=== PATIENT | female | born 1950 | race Caucasian/White ===

== ENCOUNTER 2018-02-23 07:48 | Inpatient (IN) | payer MEDICARE ==
[2018-02-20 17:40] VITALS: BMI 28.8
[2018-02-23] MEDS ORDERED: CEFAZOLIN/Water 2 GM/20 ML SYRINGE ONE (09:17)
[2018-02-23 09:18] LABS: Hemoglobin 13.5 g/dL (12.0-16.0); Mean Corpuscular HGB CONC 32.9 g/dL (32.0-36.0); Mean Corpuscular Hemoglobin 32.4 pg (27.0-31.0); Mean Corpuscular Volume 98.5 fl (81.0-99.0); Mean Platelet Volume 5.9 fL (7.4-10.4); Platelet Count 369 thou/uL (130-400); RBC Distribution Width 12.4 % (11.5-14.5); Red Blood Cell (RBC) Count 4.17 mill/uL (4.20-5.40); White Blood Cell (WBC) Count 7.1 thou/uL (4.8-10.8)
[2018-02-23 09:36] LABS: Anion Gap 11 mmol/L (10-20); BUN (Urea Nitrogen) 14 mg/dL (9.8-20.1); Calc. Creatinine Clearance 92 mL/min (70-130); Calcium 9.6 mg/dL (7.8-10.44); Carbon Dioxide 29 mmol/L (23-31); Chloride 101 mmol/L (98-107); Estimated GFR-MDRD 77; Glucose 109 mg/dL (80-115); Potassium 3.9 mmol/L (3.5-5.1); Sodium 137 mmol/L (136-145)
[2018-02-23] MEDS ORDERED: Fentanyl 100 MCG/2 ML VIAL ONE ×2 (10:38→12:22)
[2018-02-23] MEDS ORDERED: Lidocaine 2% Jelly 5 ML TUBE ONE (10:38)
[2018-02-23] MEDS ORDERED: Sodium Chloride 0.9% 10 ML ONE (10:39)
[2018-02-23] MEDS ORDERED: Promethazine HCl 25 MG/ML VIAL IM PRN ×3 (11:48→13:04)
[2018-02-23] MEDS ORDERED: Promethazine HCl 25 MG/ML VIAL SLOW IVP PRN ×2 (11:48)
[2018-02-23] MEDS ORDERED: Ondansetron HCl/PF 4 MG/2 ML Vial IVP PRN ×2 (11:48)
--- NOTE | 2018-02-23 12:07 | OP ---
DATE OF PROCEDURE: 02/23/2018 SURGEON: Junior Novoa M.D. SITE LEAD: Carlos Hay PA-C. PROCEDURES PERFORMED: Right L5-S1 posterolateral arthrodesis, demineralized bone matrix and local mo rselized autograft, pedicle screw instrumentation, right L5-S1 and right L5-S1 laminectomy. PROCEDURE IN DETAIL: The patient was brought to the operating room and intubated. She was rolled in the prone position on gel-filled chest rolls. The L5-S1 region was exposed bilaterally and the righ t L5 scar tissue was identified. Some additional decompression was performed here. Some CSF was rasheed nating from the dura that was controlled with a Gelfoam pledget and DuraSeal fibrin sealant. Pedicle screws were then placed at right L5 and right S1, connected by a sugar and distraction placed across t he screws to further decompress the neural foramen. This was secured by nuts, which were final tight ened. The wound was then extensively irrigated, immaculate hemostasis was secured. Combination of d emineralized bone matrix and local morselized autograft was laid over the left laminar and posterolat eral surfaces for the purpose of arthrodesis. Vancomycin powder was applied and the wound was then c losed in anatomic layers.
[2018-02-23] MEDS ORDERED: traZODone HCl 50 MG TAB PO PRN (12:58)
[2018-02-23] MEDS ORDERED: PROVENTIL INHALER 6.7 G (200 INHALATIONS) INH PRN (13:00)
[2018-02-23] MEDS ORDERED: Mometasone/Formoterol 120 PUFF INHALER INH PRN (13:02)
[2018-02-23] MEDS ORDERED: Ondansetron HCl/PF 4 MG/2 ML Vial SLOW IVP PRN (13:04)
[2018-02-23] MEDS ORDERED: Promethazine HCl 12.5 MG SUPP PR PRN (13:04)
[2018-02-23] MEDS ORDERED: Acetaminophen/Codeine 30-300mg Tablet PO PRN (13:04)
[2018-02-23] MEDS ORDERED: Cyclobenzaprine 10 MG TAB PO PRN (13:04)
[2018-02-23] MEDS ORDERED: diphenhydrAMINE 25 MG CAP PO PRN (13:04)
[2018-02-23] MEDS ORDERED: Milk Of Magnesia 30 ML UDCUP PO PRN (13:04)
[2018-02-23] MEDS ORDERED: diphenhydrAMINE 50 MG/ML VIAL IVP PRN (13:04)
[2018-02-23] MEDS ORDERED: traMADol HCl 50 MG TAB PO PRN ×2 (13:04)
[2018-02-23] MEDS ORDERED: Promethazine 25 MG TAB PO PRN ×2 (13:04)
[2018-02-23] MEDS ORDERED: Morphine 4 MG/ML Carpuject SLOW IVP PRN (13:04)
[2018-02-23] MEDS ORDERED: Morphine 4 MG/ML VIAL SLOW IVP PRN ×2 (13:15)
[2018-02-23] MEDS ORDERED: CEFAZOLIN/Water 2 GM/20 ML SYRINGE SLOW IVP SCH (14:00)
[2018-02-23] MEDS ORDERED: Loperamide HCl 2 MG CAP PO PRN (14:22)
[2018-02-23] MEDS ORDERED: Loratadine 10 MG TAB PO PRN (14:22)
[2018-02-23] MEDS ORDERED: Bisacodyl 10 MG SUPP PR PRN (14:22)
[2018-02-23] MEDS ORDERED: hydrALAZINE 20 MG/ML VIAL SLOW IVP PRN (14:22)
[2018-02-23] MEDS ORDERED: Artificial Tears 18 DROP/0.9 ML EA EYE PRN (14:22)
[2018-02-23] MEDS ORDERED: Ondansetron ODT 4 MG TAB PO PRN (14:22)
[2018-02-23] MEDS ORDERED: Eucerin (Mineral Oil/Petrolatum,White) 30 gm Jar TOP PRN (14:22)
[2018-02-23] MEDS ORDERED: Diabetic Tussin 200 MG/10 ML UDCUP PO PRN (14:22)
[2018-02-23] MEDS ORDERED: Mag-Al 1200 mg/1200 mg/30 ML UDCUP PO PRN (14:22)
[2018-02-23] MEDS ORDERED: Senokot 8.6 MG TAB PO PRN (14:22)
[2018-02-23] MEDS ORDERED: Acetaminophen 325 MG TAB PO PRN (14:22)
[2018-02-23] MEDS ORDERED: Chloraseptic Spray 180 ml Bottle PO PRN (14:23)
--- NOTE | 2018-02-23 14:41 | CON ---
DATE OF CONSULTATION: 02/23/2018 PRIMARY CARE PHYSICIAN: Is in [place], so this is city call consult. PRIMARY ATTENDING: Junior Noova M.D. REASON FOR ADMISSION: L5-S1 decompression and fusion. REASON FOR CONSULT: Medical comanagement. HISTORY OF PRESENT ILLNESS: A 67-year-old female who has underlying history of hypertension, dyslipi demia, gastroesophageal reflux disease as well as spinal stenosis and chronic low back pain. The pat xenia is electively admitted by Dr. Bright Pacheco for L5-S1 decompression and fusion. The patient has a history of right L5 foraminotomy in 2016 and subsequently patient was doing very well. Estuardo altamirano was recently diagnosed with L5 foraminal stenosis. The patient had epidural steroid injection by Lilian Randolph. Patient was having chronic low back pain and pain was not improved with conservative treatment and that is why patient was admitted by Dr. Novoa today for elective surgery which was done earlier today without any complication. Postoperatively, at surgical floor we are consulted for medical management. Patient denies any UTI symptoms. She denies any constipation, diarrhea. She denies any abdominal pa in. She denies any fever, chills and cough. Patient reports that she recovered from acute bronchiti s recently. She denies any flu-like illness. The patient is up to date in vaccination. REVIEW OF SYSTEMS: The following complete review of systems was negative, unless otherwise mentioned in the HPI or below: Constitutional: Weight loss or gain, ability to conduct usual activities. Skin: Rash, itching. Eyes: Double vision, pain. ENT/Mouth: Nose bleeding, neck stiffness, pain, tenderness. Cardiovascular: Palpitations, dyspnea on exertion, orthopnea. Respiratory: Shortness of breath, wheezing, cough, hemoptysis, fever or night sweats. Gastrointestinal: Poor appetite, abdominal pain, heartburn, nausea, vomiting, constipation, or diarr hea. Genitourinary: Urgency, frequency, dysuria, nocturia. Musculoskeletal: Pain, swelling. Neurologic/Psychiatric: Anxiety, depression. Allergy/Immunologic: Skin rash, bleeding tendency. Please see my HPI for pertinent positive and negative. All other review of systems reviewed and nega tive except as mentioned in the HPI. ALLERGIES: CODEINE and SULFA. CURRENT HOME MEDICATIONS: Tylenol #3 one tablet q.6 hourly p.r.n., Ventolin HFA 1 puff q.6 hourly p. r.n., Lipitor 40 mg p.o. at bedtime, azelastine nasal spray b.i.d., vitamin D3 5000 unit p.o. daily, cyclobenzaprine 5 mg p.o. t.i.d. p.r.n., Breo Ellipta inhalation as directed, Atrovent nasal spray b. i.d., probiotic 1 capsule p.o. daily, losartan 25 mg p.o. daily, oxybutynin ER 10 mg p.o. at bedtime, Protonix 40 mg p.o. daily, trazodone 50 mg p.o. at bedtime p.r.n., vitamin B12 2500 mcg sublingual d aily. PAST MEDICAL HISTORY: Asthma, hypertension, dyslipidemia, migraine headache, gastroesophageal reflux disease, cervical and lumbar stenosis, allergic rhinitis. PAST SURGICAL HISTORY: Bladder sling surgery, cervical spine surgery, right L5 foraminotomy in 2015, another back surgery in 2008, status post decompressive laminectomy on L5-S1 today, knee arthroscopy on the right side, cholecystectomy, right ankle surgery in 1994, right ovarian cyst removed in 1969, hysterectomy, tonsillectomy, adenoidectomy, right shoulder surgery. PAST PSYCHIATRIC HISTORY: Reviewed and negative. FAMILY HISTORY: One brother from testicular cancer and another brother had lung cancer. Both p arents diagnosed with coronary artery disease. SOCIAL HISTORY: Patient is an ex-smoker. She quit smoking in 2001. She drinks alcohol socially. S he denies any other illicit drug abuse. PHYSICAL EXAMINATION: VITAL SIGNS: Currently, temperature 98.6, pulse 79, respiratory rate 18, blood pressure 130/78, weig ht 179 pounds, and saturation 99% on room air. GENERAL: The patient is currently alert, awake, no acute distress. HEAD: Normocephalic, atraumatic. EYES: Pupils round, reactive to light. Extraocular muscle intact. ENT: Oropharynx within normal limits. Moist mucous membranes, no oral lesion, no pharyngeal erythem a, no exudate. NECK: Supple, no JVD, no thyromegaly, no carotid bruit, no jugular venous distention. LUNGS: Clear to auscultation without any rhonchi or rales. CARDIAC: S1 and S2 regular. No murmur, no gallop, no rub. ABDOMEN: Soft, bowel sounds present, nontender, nondistended. No organomegaly, no mass, no suprapub ic tenderness. BACK: Examination unremarkable. Surgical site is covered with a dressing. No drain. EXTREMITIES: No edema. NEUROLOGIC: Nonfocal examination. The patient moves all 4 limbs. Plantar bilateral flexor. PSYCHIATRIC: Normal affect. HEMATOLOGICAL SYSTEM: No lymphadenopathy. SIGNIFICANT LABORATORY DATA AND IMAGING DATA: 1. CBC: WBC 7.1, hemoglobin 13.5, platelet 369. 2. BMP: Sodium 137, potassium 3.9, chloride 101, carbon dioxide 29, anion gap 11, BUN 14, creatinin e 0.75, glucose 109, calcium 9.6. 3. Lumbar spine MRI and cervical spine MRI report noted consistent with multilevel spondylosis of richie mbar spine with stenosis. Similarly, cervical spine MRI also shows degenerative spine disease and tesfaye rgical changes. ASSESSMENT AND PLAN/IMPRESSION: 1. Status post right L5-S1 posterolateral arthrodesis and right L5-S1 laminectomy. Management as pe r primary team. Patient will need PT/OT and most likely patient will be discharged tomorrow based on clinical course. Pain will be controlled with pain medication. 2. Asthma, currently stable. We will continue patient's home medications, Ventolin HFA 2 puffs q.6 hourly p.r.n. basis. We will also continue Breo Ellipta equivalent Dulera while in hospital as neede d. 3. Gastroesophageal reflux disease. We will continue Protonix 40 mg p.o. daily. 4. Overactive bladder. We will continue Ditropan XL 10 mg p.o. at bedtime. 5. Hypertension. We will continue losartan 25 mg p.o. daily. We will hold on antihypertensive medi cation if blood pressure is less than 120 systolic. 6. Allergic rhinitis. We will continue Atrovent nasal spray and azelastine nasal spray. 7. Deep venous thrombosis prophylaxis. Sequential compression device boots. No Lovenox because of back surgery. 8. Dyslipidemia. Continue Lipitor 40 mg p.o. at bedtime. 9. Gastrointestinal prophylaxis. Patient is already on Protonix therapy. 10. Code status: The patient is FULL CODE. Patient's brother is surrogate decision maker. Disposition plan based on clinical course. Thank you for consult. We will follow up with you while in hospital. Plan of care discussed with louisa lerma's family member at bedside.
[2018-02-23] MEDS: Acetaminophen/Codeine 30-300mg Tablet PO PRN ×2 (15:30→21:05)
[2018-02-23] MEDS: Sodium Chloride 0.9% 1,000 ML IV SCH (15:32)
[2018-02-23] MEDS ORDERED: PHENYLEPHRINE-NS 100 MCG/ML 10 ML SYRINGE ONE (15:49)
[2018-02-23] MEDS ORDERED: Glycopyrrolate 0.2 MG/ML 5 ML SYRINGE ONE (15:49)
[2018-02-23] MEDS ORDERED: Lidocaine 1% PF 5 ML VIAL ONE (15:49)
[2018-02-23] MEDS ORDERED: Ondansetron HCl/PF 4 MG/2 ML Vial ONE (15:49)
[2018-02-23] MEDS ORDERED: PROPOFOL 200 MG/20 ML VIAL ONE (15:49)
[2018-02-23] MEDS ORDERED: Dexamethasone 20 MG/5 ML VIAL ONE ×2 (15:49)
[2018-02-23] MEDS: CEFAZOLIN/Water 2 GM/20 ML SYRINGE SLOW IVP SCH (17:22)
[2018-02-23] MEDS: Mometasone/Formoterol 120 PUFF INHALER INH SCH (18:59)
[2018-02-23] MEDS ORDERED: Atorvastatin Calcium 40 MG TAB PO SCH (21:00)
[2018-02-23] MEDS ORDERED: Oxybutynin ER 5 MG TAB PO SCH (21:00)
[2018-02-23] MEDS: Azelastine 137 MCG/Spray 30 ML NS SCH (21:03)
[2018-02-23] MEDS: Ipratropium Bromide 0.06% Nasal Inhaler 15ml EA NARE SCH (23:09)
[2018-02-24] MEDS: CEFAZOLIN/Water 2 GM/20 ML SYRINGE SLOW IVP SCH (00:25)
[2018-02-24] MEDS: Sodium Chloride 0.9% 1,000 ML IV SCH (04:32)
[2018-02-24] MEDS: Mometasone/Formoterol 120 PUFF INHALER INH SCH (07:42)
[2018-02-24 07:52] VITALS: BP 137/74; TEMP 97.5
[2018-02-24] MEDS ORDERED: Lactinex Tablet PO SCH (09:00)
[2018-02-24] MEDS ORDERED: Losartan 25 MG TAB PO SCH ×2 (09:00)
[2018-02-24] MEDS ORDERED: Cyanocobalamin (Vitamin B-12) 1,000 MCG TAB PO SCH (09:00)
[2018-02-24] MEDS: Ipratropium Bromide 0.06% Nasal Inhaler 15ml EA NARE SCH (10:21)
[2018-02-24] MEDS: Azelastine 137 MCG/Spray 30 ML NS SCH (10:21)
--- NOTE | 2018-03-01 08:37 | EKG ---
Test Reason : PREOP Blood Pressure : / mmHG Vent. Rate : 076 BPM Atrial Rate : 076 BPM P-R Int : 136 ms QRS Dur : 086 ms QT Int : 426 ms P-R-T Axes : 044 044 051 degrees QTc Int : 479 ms Normal sinus rhythm Normal ECG When compared with ECG of 12-AUG-2016 10:56, No significant change was found Confirmed by LUPE RIVERA, RE ([id number]) on 03/01/2018 8:36:50 AM Referred By: AUDRA Confirmed By:RE ANDRADE MD
== END 2018-02-24 11:00 | disposition home or self-care (01) | DRG 460 ==
LOC: SURG A 07:48 → SURG B 13:44 → EDSTATUS 14:44
PROVIDERS: ADMIT Neurological Surgery; ATTEND Neurological Surgery
PROC: 0SG3071 Fusion of Lumbosacral Joint with Autologous Tissue Substitute, Posterior Approach, Posterior Column, Open Approach (ICD-10-PCS; principal; 2018-02-23)
PROC: 00NY0ZZ Release Lumbar Spinal Cord, Open Approach (ICD-10-PCS; 2018-02-23)
DX: M43.16 Spondylolisthesis, lumbar region (principal); M48.02 Spinal stenosis, cervical region; M43.27 Fusion of spine, lumbosacral region; M48.061 Spinal stenosis, lumbar region without neurogenic claudication; I10 Essential (primary) hypertension; K21.9 Gastro-esophageal reflux disease without esophagitis; E78.5 Hyperlipidemia, unspecified; G89.29 Other chronic pain; Z88.5 Allergy status to narcotic agent; Z88.2 Allergy status to sulfonamides; J45.909 Unspecified asthma, uncomplicated; Z79.51 Long term (current) use of inhaled steroids; Z79.82 Long term (current) use of aspirin; Z90.49 Acquired absence of other specified parts of digestive tract; Z87.891 Personal history of nicotine dependence; N32.81 Overactive bladder; M54.16 Radiculopathy, lumbar region
CPT/HCPCS: 36415; 76001; 80048; 85027; 93005; 93010; A4216; C1713; C1768; G8978-GP-CI; G8979-GP-CI; G8980-GP-CI; J1100; J2001; J2270; J2405; J2704; J3010; J3370; J3490

== ENCOUNTER 2018-03-11 15:32 | Outpatient (CLI) | payer MEDICARE ==
--- NOTE | 2018-03-11 17:08 | RAD ---
TWO VIEWS LUMBAR SPINE 03/11/18 HISTORY: Spinal stenosis. Followup surgery. COMPARISON: 01/14/17 FINDINGS: Rightward curvature of the lumbar spine at the L2 and L3 level. There are five lumbar type vertebral bodies. Right sided transpedicular screw at L5 and S1. No perihardware lucency. Stable degenerative d isc disease at L2-L3 with osteophyte formation. There appears to be pseudoarthrosis of the left L5 al a with the sacrum. IMPRESSION: Uncomplicated lumbar fusion. POS: JEANIE
== END 2018-03-11 15:33 | disposition home or self-care (01) ==
LOC: TBSIIMAG 15:32
PROVIDERS: ATTEND Neurological Surgery
DX: M48.062 Spinal stenosis, lumbar region with neurogenic claudication (principal); Z98.1 Arthrodesis status
CPT/HCPCS: 72100

== ENCOUNTER 2018-04-08 15:32 | Outpatient (CLI) | payer MEDICARE ==
--- NOTE | 2018-04-08 16:07 | RAD ---
LUMBAR SPINE TWO VIEWS: History: Back pain, lumbar radiculopathy, follow up surgery. Comparison: 03-11-18 FINDINGS: Scoliotic curvature with convexity to the right is again noted. Lumbar vertebrae maintain height and alignment in the lateral view. Pedicle screws are seen on the right at L5-S1 and are unchanged in pos ition. IMPRESSION: Degenerative and post-operative changes lumbar spine appear stable from 03-11-18. POS: KATHERINE
== END 2018-04-08 15:33 | disposition home or self-care (01) ==
LOC: TBSIIMAG 15:32
PROVIDERS: ATTEND Neurological Surgery
DX: M47.26 Other spondylosis with radiculopathy, lumbar region (principal); Z98.890 Other specified postprocedural states
CPT/HCPCS: 72100

== ENCOUNTER 2018-09-03 14:10 | Outpatient (CLI) | payer MEDICARE ==
--- NOTE | 2018-09-03 16:01 | RAD ---
TWO VIEWS LUMBAR SPINE: Date: 09-03-18 Comparison: 04-08-18 History: Right leg numbness while exercising, radiculopathy, prior back surgery. FINDINGS: Surgical clips in the right upper quadrant suggest prior cholecystectomy. There is dextroscoliosis of the upper lumbar spine centered at the L2 vertebral body with a rotationa l component, stable. Stable fusion hardware comprised of a unilateral right sided L5 and S1 pedicle screw with a verticall y oriented interlocking sugar, noted and is grossly unchanged. There is no evidence of anterolisthesis or retrolisthesis There is disc space narrowing with degenerative endplate change and anterior osteophyte formation at L2-3 and L5-S1. No acute fracture is evident. No significant interval change. IMPRESSION: Stable post-operative and degenerative changes of the lumbar spine as detailed above. POS: JEANIE
== END 2018-09-03 14:11 | disposition home or self-care (01) ==
LOC: TBSIIMAG 14:10
PROVIDERS: ATTEND Neurological Surgery
DX: M47.26 Other spondylosis with radiculopathy, lumbar region (principal); Z98.890 Other specified postprocedural states
CPT/HCPCS: 72100

== ENCOUNTER 2018-10-28 13:31 | Outpatient (CLI) | payer MEDICARE ==
--- NOTE | 2018-10-28 15:45 | RAD ---
LUMBAR SPINE THREE VIEWS: 10/28/18 COMPARISON: 09/03/18. HISTORY: Evaluate lumbar spine following surgery, radiculopathy. FINDINGS: Stable prominent dextroscoliosis of the lumbar spine noted. There is a right sided L5 and S1 pedicle screw with a vertically oriented interlocking sugar, similar when compared to the prior examination. Th ere is no significant anterolisthesis or retrolisthesis seen. There is disc space narrowing with post erior and anterior osteophyte formation at L2-3. There is disc space narrowing and anterior osteophyt e formation at L5-S1. Clips in right upper quadrant suggests prior cholecystectomy. No acute fracture or evidence of dislocation. No evidence for hardware failure. IMPRESSION: Stable postoperative and degenerative change of the lumbar spine. POS: JEANIE
== END 2018-10-28 13:32 | disposition home or self-care (01) ==
LOC: TBSIIMAG 13:31
PROVIDERS: ATTEND Neurological Surgery
DX: M47.26 Other spondylosis with radiculopathy, lumbar region (principal); Z98.890 Other specified postprocedural states
CPT/HCPCS: 72100

== ENCOUNTER 2019-03-24 17:23 | Observation (INO) | payer MEDICARE ==
[2019-03-24 18:02] LABS: #Basophils 0.1 thou/uL (0.0-0.2); #Eosinphils 0.1 thou/uL (0.0-0.7); #Lymphocytes 5.3 thou/uL (1.20-3.40); #Monocytes 1.6 thou/uL (0.11-0.59); #Neutrophils 8.4 thou/uL (1.40-6.50); %Basophils 0.9 % (0.0-1.0); %Eosinophils 0.7 % (0.0-10.0); %Monocytes 10.5 % (0.0-10.0); Hemoglobin 14.5 g/dL (12.0-16.0); Mean Corpuscular HGB CONC 32.6 g/dL (32.0-36.0); Mean Corpuscular Hemoglobin 31.2 pg (27.0-31.0); Mean Corpuscular Volume 95.7 fL (78.0-98.0); Mean Platelet Volume 6.2 fL (7.4-10.4); Platelet Count 406 thou/uL (130-400); RBC Distribution Width 12.8 % (11.5-14.5); Red Blood Cell (RBC) Count 4.64 mill/uL (4.20-5.40); White Blood Cell (WBC) Count 15.5 thou/uL (4.8-10.8)
--- NOTE | 2019-03-24 18:11 | RAD ---
Frontal radiograph chest: 03/24/2019 COMPARISON: 05/18/2018 HISTORY: Epigastric pain radiating to the back FINDINGS: Mild increased linear density within the inferior lung bases suggests volume loss. Heart an d mediastinal contours are stable. No pneumothorax or pleural fluid. No focal consolidation or alveolar edema. IMPRESSION: No acute findings.
[2019-03-24 18:36] LABS: ALT (SGPT) 25 U/L (8-55); AST (SGOT) 12 U/L (5-34); Albumin 4.5 g/dL (3.4-4.8); Alkaline Phosphatase 86 U/L (40-150); Anion Gap 12 mmol/L (10-20); Bilirubin, Total 0.5 mg/dL (0.2-1.2); CK (CPK) 55 U/L (29-168); Calc. Creatinine Clearance 0 mL/min (70-130); Calcium 10.4 mg/dL (7.8-10.44); Carbon Dioxide 31 mmol/L (23-31); Chloride 97 mmol/L (98-107); Estimated GFR-MDRD 72; Globulin 2.7 g/dL (2.4-3.5); Glucose 103 mg/dL (80-115); Lipase 89 U/L (8-78); Potassium 3.8 mmol/L (3.5-5.1); Protein, Total 7.2 g/dL (6.0-8.3); Sodium 136 mmol/L (136-145)
[2019-03-24 18:54] LABS: BUN (Urea Nitrogen) 14 mg/dL (9.8-20.1)
[2019-03-24] MEDS ORDERED: Aspirin Chewable 81 MG TAB ONE (21:01)
[2019-03-24 21:31] LABS: Troponin I 0.014 ng/mL (< 0.028)
[2019-03-24] MEDS ORDERED: Acetaminophen/Codeine 30-300mg Tablet PO PRN (22:36)
[2019-03-24] MEDS ORDERED: PROVENTIL INHALER 6.7 G (200 INHALATIONS) INH PRN (22:36)
[2019-03-24] MEDS ORDERED: Cyclobenzaprine 10 MG TAB PO PRN (22:36)
[2019-03-25 00:08] VITALS: BMI 29.6
[2019-03-25 00:39] LABS: Troponin I 0.012 ng/mL (< 0.028)
--- NOTE | 2019-03-25 02:35 | HP ---
PRIMARY CARE PHYSICIAN: Dr. Alexander in [place]. CHIEF COMPLAINT: Shortness of breath and epigastric pain radiating to right jaw and right side of back. HISTORY OF PRESENT ILLNESS: Ms. Bautista is a 68-year-old female with a past medical history of hypertension, hyperlipidemia, chronic bronchitis/COPD, urinary incontinence, who had presented to [facility] earlier today after she had some worsening epigastric pain radiating to right upper quadrant around to right scapula and right side of jaw. She had reported symptoms started around Friday and had gradually worsened over the last 2 days. She states that she had seen her PCP, Dr. Alexander, late last week and was treated for chronic bronchitis/COPD exacerbation. She states that she was started on doxycycline and a prednisone course. She states that she had started this regimen on Friday and had taken out over the weekend prior to symptoms starting early Friday morning. She states that the pain is pretty consistent. She had denied any change with food or meals. She had denied any fever, chills, any headache, blurred vision, or dizziness, any vision changes. She had denied any palpitations or nausea or vomiting. She states that she had tried to take her home TUMS; however, she had denied any sort of relief. She states within the last year, she had some left-sided chest pain and she was seen by a acid wash operator, Dr. Guevara, and she reports an extensive cardiac workup within the last year. However, she had stated that the workup was negative. Her initial workup included a chest x-ray which revealed no acute findings. WBC sightly elevated at 15.5; however, this could likely be secondary to her recent and current prednisone use. Serial troponins were ordered and were found to be negative x2. The 3rd is pending. Lipase is slightly elevated at 89 with all other lab work essentially unremarkable. A D-dimer is pending at this time, along with abdominal ultrasound. Her EKG in the ED showed normal sinus rhythm with a rate in the 80s, she was given 325 mg of oral aspirin. However, denied any sort of relief after this. Plan is to admit the patient under observation, place her in the telemetry floor for further monitoring, her records from Dr. Guevara's office will be obtained and she will undergo further workup of her symptoms. REVIEW OF SYSTEMS: All other systems reviewed and found to be negative unless mentioned in the HPI. PAST MEDICAL HISTORY: Significant for hypertension, hyperlipidemia, chronic bronchitis/COPD, urinary incontinence. PAST SURGICAL HISTORY: Back surgery, bilateral cataract surgery, neck surgery, right shoulder surgery x2, right knee surgery x2, right ankle, hysterectomy, bladder surgery, tonsillectomy. PSYCHIATRIC HISTORY: None. SOCIAL HISTORY: The patient is a former smoker, she states that she quit in 2001. She states she drinks socially every week, however, denies any illicit drug use. KNOWN ALLERGIES: Cephalexin, codeine, meloxicam, and sulfa. CURRENT HOME MEDICATIONS: 1. Losartan 25 mg oral daily. 2. Atorvastatin 40 mg oral daily. 3. Oxybutynin 10 mg oral once daily. 4. Cyclobenzaprine 10 mg oral as needed for back spasms. 5. Acetaminophen/codeine 300/30 mg oral as needed for pain. 6. Albuterol 90 mcg one inhalation as needed for shortness of breath. 7. Potassium chloride 20 mEq oral once a week. 8. Alendronate 70 mg oral once a week. 9. Azelastine one spray intranasally three times a day. 10. Ipratropium bromide one spray intranasally two times a day. 11. Prednisone taper. 12. Doxycycline 100 mg p.o. b.i.d. PHYSICAL EXAMINATION: VITAL SIGNS: BP 162/88, pulse 76, respirations 18, temperature 98.5 degrees Fahrenheit, O2 saturations 97% on room air. GENERAL: The patient is awake, alert, and oriented x3. She appears to be nontoxic. She is currently sitting up in bed and in no acute distress noted. HEENT: Atraumatic, normocephalic. Pupils are round and reactive to light. Extraocular muscles intact. Moist mucous membranes noted. NECK: Soft and supple. No JVD noted. Trachea midline. CARDIOVASCULAR: Positive S1 and S2. Regular rate and rhythm. No murmur auscultated. RESPIRATORY: Clear to auscultation bilaterally. No wheezes, rales, or rhonchi appreciated. ABDOMEN: Soft. Mild to moderate tenderness in her right upper quadrant and her epigastric area, nondistended. Bowel sounds present. MUSCULOSKELETAL: Strength 5+ bilaterally upper and lower extremities. Moves all extremities equal. Pedal and radial pulses palpable and 2+ bilaterally. No edema noted. SKIN: Warm, dry, and intact. No rashes. No ulceration noted. NEUROLOGIC: Cranial nerves II through XII grossly intact. No focal deficits noted. Speech intact and normal. Gait, not assessed. PSYCHIATRIC: Good mood and affect. LABORATORY DATA: WBC 15.5, RBC 4.64, hemoglobin 14.5, platelets 406. ESR less than 1. Sodium 136, potassium 3.8, anion gap 12, BUN 14, creatinine 0.78, estimated GFR 72. AST 12, ALT 25. Creatine kinase 55. Troponin less than 0.010 and 0.014. Lipase 89. DIAGNOSTIC IMAGING: Portable chest x-ray showed no acute findings. ASSESSMENT AND PLAN: 1. Epigastric pain and pain in her right upper quadrant, radiating to right back and right side of jaw, lipase is slightly elevated at 89. Therefore, we will check an ultrasound of her right upper quadrant for further evaluation. The patient was recently started with doxycycline. Therefore, this could possibly be causing some mild pancreatitis and/or gastritis. She will be treated with PPI and her doxycycline will be switched to Levaquin during the hospital course. 2. Chest pain, even though, this appears to be more of an epigastric pain. We will trend her cardiac enzymes, so far negative x2. We will keep her on telemetry monitoring for further evaluation. Her records will be obtained from Dr. Guevara of [facility] in [place], as she states that she had an extensive cardiac workup within the last year. If this is true, she may not require any further cardiac workup at this time. However, we will await these records. 3. Chronic bronchitis/chronic obstructive pulmonary disease. The patient will be restarted on her home regimen. She was taking oral doxycycline and this will be discontinued at this time and will be switched to oral Levaquin. We will add DuoNebs as needed for any further shortness of breath. We will start her on oral guaifenesin for her cough. Due to patient's increased shortness of breath, we will rule out pulmonary embolism by obtaining D-dimer, currently pending at this time. 4. History of hypertension. Continue the patient's home regimen. 5. History of hyperlipidemia. Continue the patient's home regimen. 6. Deep venous thrombosis and gastrointestinal prophylaxis. CODE STATUS: Full code. DISPOSITION: Pending further workup and clinical findings. Job ID: [id number]
--- NOTE | 2019-03-25 07:10 | ULT ---
GALLBLADDER ULTRASOUND: Date: 03/25/19 HISTORY: Right upper quadrant pain. FINDINGS: No focal hepatic lesion. Gallbladder is not visualized. Correlate for prior surgical removal. Common duct is normal at 5 mm. No ascites. IMPRESSION: 1. Nonvisualization of gallbladder. Correlate for prior surgical removal. 2. No acute abnormality identified within the right upper quadrant, by sonographic evaluation. POS: NIMCOK
[2019-03-25 08:17] LABS: Hemoglobin 14.4 g/dL (12.0-16.0); Mean Corpuscular Hemoglobin 32.4 pg (27.0-31.0); Mean Corpuscular Volume 95.5 fL (78.0-98.0); Mean Platelet Volume 7.5 fL (7.4-10.4); Platelet Count 308 thou/uL (130-400); RBC Distribution Width 12.8 % (11.5-14.5); Red Blood Cell (RBC) Count 4.45 mill/uL (4.20-5.40); White Blood Cell (WBC) Count 9.1 thou/uL (4.8-10.8)
[2019-03-25 08:39] LABS: ALT (SGPT) 26 U/L (8-55); AST (SGOT) 11 U/L (5-34); Alkaline Phosphatase 79 U/L (40-150); Anion Gap 12 mmol/L (10-20); BUN (Urea Nitrogen) 14 mg/dL (9.8-20.1); Bilirubin, Total 0.6 mg/dL (0.2-1.2); Calc. Creatinine Clearance 94 mL/min (70-130); Calcium 9.4 mg/dL (7.8-10.44); Carbon Dioxide 33 mmol/L (23-31); Chloride 100 mmol/L (98-107); Estimated GFR-MDRD 78; Globulin 2.2 g/dL (2.4-3.5); Glucose 89 mg/dL (80-115); Lipase 65 U/L (8-78); Potassium 4.3 mmol/L (3.5-5.1); Protein, Total 6.2 g/dL (6.0-8.3); Sodium 141 mmol/L (136-145)
[2019-03-25 09:00] LABS: Band 3 % (5-11); Eosinophils 1 % (0-10); Lymphocytes 45 % (21-51); MDiff Complete? YES; Monocytes 9 % (0-10); Myelocyte 1 % (0-0); Neutrophil 41 % (42-75); RBC Morphology Normal
[2019-03-25] MEDS ORDERED: Doxycycline 100 MG CAP PO SCH (09:00)
[2019-03-25] MEDS ORDERED: Acetaminophen 650 MG Suppository PR PRN (09:12)
[2019-03-25] MEDS ORDERED: Ondansetron PF 4 MG/2 ML Vial IVP PRN (09:12)
[2019-03-25] MEDS ORDERED: Acetaminophen 325 MG TAB PO PRN (09:12)
[2019-03-25] MEDS: Losartan 25 MG TAB PO SCH (09:54)
[2019-03-25] MEDS: predniSONE 20 MG TAB PO SCH (09:55)
[2019-03-25] MEDS ORDERED: Cyclobenzaprine 10 MG TAB PO SCH (11:15)
--- NOTE | 2019-03-25 14:25 | PDOC.PN ---
- Subjective Encounter Start Date: 03/25/19 Encounter Start Time: 08:33 Subjective: Patient resting comfortably. Reports persistent pain in the right side -: of her jaw. No further epigastric or chest pain. States it had radiated up -: into rt side of her neck, however no further neck pain. Tolerated her breakfast well. No pain with chewing, no trouble swallowing. No painful swallowing. Denies any n/v or abdo pain. Recently treated for bronchitis with doxycycline, switched to Levaquin on admission. Patient states she has been doing well from that perspective and noticed improvement in her cough, though still lingering. Cough +green sputum, now its yellow. She does not take Mucinex due to dry oral mucosa when she does despite hydrating. Also states Tessalon perles do not help with her cough. - Objective Resuscitation Status - Order Detail: 03/25/19 09:12 Resuscitation Status Routine Co-Sign Provider: Resuscitation Status: FULL: Full Resuscitation Vital Signs & Weight: Vital Signs (12 hours) Temp Pulse Resp BP BP Pulse Ox 03/25/19 14:12 82 16 97 03/25/19 11:41 97.4 F L 82 16 141/67 H 97 03/25/19 07:36 97.4 F L 90 16 140/75 97 03/25/19 06:00 98.1 F 74 18 163/67 H 95 Weight Weight 183 lb 9.6 oz I&O: 03/24/19 03/25/19 03/26/19 06:59 06:59 06:59 Intake Total 240 480 Balance 240 480 Result Diagrams: 03/25/19 07:45 03/25/19 07:45 Phys Exam - Physical Examination Constitutional: NAD HEENT: PERRLA, moist MMs, sclera anicteric, oral pharynx no lesions No jaw tenderness or bone deformity Neck: no nodes, supple, full ROM nontender Respiratory: clear to auscultation bilateral Cardiovascular: RRR, no significant murmur, no rub Gastrointestinal: soft, non-tender, no distention, positive bowel sounds Musculoskeletal: no edema, pulses present Neurological: normal sensation, moves all 4 limbs Lymphatic: no nodes Psychiatric: normal affect, A&O x 3 Skin: no rash, normal turgor Dx/Plan (1) Chest pain Code(s): R07.9 - CHEST PAIN, UNSPECIFIED Status: Acute (2) Jaw pain Code(s): R68.84 - JAW PAIN Status: Acute (3) Hypertension Code(s): I10 - ESSENTIAL (PRIMARY) HYPERTENSION Status: Acute (4) GERD (gastroesophageal reflux disease) Code(s): K21.9 - GASTRO-ESOPHAGEAL REFLUX DISEASE WITHOUT ESOPHAGITIS Status: Acute (5) COPD (chronic obstructive pulmonary disease) Status: Acute (6) Bronchitis Code(s): J40 - BRONCHITIS, NOT SPECIFIED ACUTE OR CHRONIC Status: Acute - Plan cont current plan of care, continue antibiotics Trop neg x 3. CXR: no acute changes. -: Flexeril 10 mg PO x 1, if jaw pain persists, -: will obtain stress test as per discussion with Dr. Burroughs. -: ADDENDUM: No improvement. Will need to keep her NPO at midnight. -: Stress test ordered, likely to be done in AM. * . Review of Systems - Review of Systems Constitutional: negative: fever, chills, sweats, weakness, malaise Eyes: negative: Pain, Vision Change, Conjunctivae Inflammation, Eyelid Inflammation, Redness ENT: Other (Right sided mandibular pain, no trauma). negative: Ear Pain, Ear Discharge, Nose Pain, Nose Discharge, Nose Congestion, Mouth Pain, Mouth Swelling, Throat Pain, Throat Swelling Respiratory: Cough (productive for yellow sputum, was green). negative: Dry, Shortness of Breath, Hemoptysis, SOB with Excertion, Pleuritic Pain, Sputum, Wheezing Cardiovascular: negative: chest pain, palpitations, orthopnea, paroxysmal nocturnal dyspnea, edema, light headedness Gastrointestinal: negative: Nausea, Vomiting, Abdominal Pain, Diarrhea, Constipation, Melena, Hematochezia Genitourinary: negative: Dysuria, Frequency, Incontinence, Hematuria, Retention Musculoskeletal: negative: Neck Pain, Shoulder Pain, Arm Pain, Back Pain, Hand Pain, Leg Pain, Foot Pain Skin: negative: Rash, Lesions, Brandon, Bruising Neurological: negative: Weakness, Numbness, Incoordination, Change in Speech, Confusion, Seizures - Medications/Allergies Allergies/Adverse Reactions: Allergies Allergy/AdvReac Type Severity Reaction Status Date / Time cephalexin [From Keflex] Allergy Verified 03/24/19 22:14 codeine Allergy Verified 02/23/18 13:57 meloxicam Allergy Verified 03/24/19 22:14 Sulfa (Sulfonamide Allergy Verified 02/23/18 13:57 Antibiotics) Medications: Current Medications Acetaminophen (Tylenol) 650 mg PO Q4H PRN PRN Reason: Headache/Fever/Mild Pain (1-3) Acetaminophen (Tylenol) 650 mg IN Q4H PRN PRN Reason: Headache/Fever/Mild Pain (1-3) Albuterol Sulfate (Proventil Hfa) 1 puff INH Q6HR PRN PRN Reason: SOB &/or Wheezing Albuterol/Ipratropium (Duoneb) 3 ml NEB [id number] [facility] Last Admin: 03/25/19 14:12 Dose: 3 ml Atorvastatin Calcium (Lipitor) 40 mg PO HS DELLA Cyclobenzaprine HCl (Flexeril) 10 mg PO Q8H PRN PRN Reason: Muscle Spasm Levofloxacin (Levaquin) 500 mg PO 0600 [facility] Last Admin: 03/25/19 06:16 Dose: 500 mg Losartan Potassium (Cozaar) 25 mg PO QAM [facility] Last Admin: 03/25/19 09:54 Dose: 25 mg Ondansetron HCl (Zofran) 4 mg IVP Q6H PRN PRN Reason: Nausea/Vomiting Oxybutynin Chloride (Ditropan Xl) 10 mg PO HS DELLA Pantoprazole Sodium (Protonix) 40 mg PO QAM [facility] Last Admin: 03/25/19 09:55 Dose: Not Given Prednisone (Prednisone) 40 mg PO Q[facility] Last Admin: 03/25/19 09:55 Dose: 40 mg Sodium Chloride (Flush - Normal Saline) 10 ml IVF Q12HR [facility] Sodium Chloride (Flush - Normal Saline) 10 ml IVF PRN PRN PRN Reason: Saline Flush
[2019-03-25] MEDS ORDERED: Famotidine/PF 20 mg/2ml Vial SLOW IVP SCH (21:00)
[2019-03-25] MEDS ORDERED: Atorvastatin Calcium 40 MG TAB PO SCH (21:00)
[2019-03-25] MEDS ORDERED: Oxybutynin ER 5 MG TAB PO SCH (21:00)
[2019-03-26 06:10] LABS: #Eosinphils 0.1 thou/uL (0.0-0.7); #Lymphocytes 4.4 thou/uL (1.20-3.40); #Monocytes 1.5 thou/uL (0.11-0.59); #Neutrophils 8.4 thou/uL (1.40-6.50); %Basophils 0.2 % (0.0-1.0); %Eosinophils 0.5 % (0.0-10.0); %Lymphocytes 30.6 % (21.0-51.0); %Monocytes 10.6 % (0.0-10.0); Hemoglobin 14.2 g/dL (12.0-16.0); Mean Corpuscular HGB CONC 33.2 g/dL (32.0-36.0); Mean Corpuscular Hemoglobin 31.7 pg (27.0-31.0); Mean Corpuscular Volume 95.4 fL (78.0-98.0); Mean Platelet Volume 6.2 fL (7.4-10.4); Platelet Count 384 thou/uL (130-400); RBC Distribution Width 12.7 % (11.5-14.5); Red Blood Cell (RBC) Count 4.49 mill/uL (4.20-5.40); White Blood Cell (WBC) Count 14.5 thou/uL (4.8-10.8)
[2019-03-26 06:22] LABS: Anion Gap 13 mmol/L (10-20); BUN (Urea Nitrogen) 12 mg/dL (9.8-20.1); Calc. Creatinine Clearance 92 mL/min (70-130); Calcium 9.3 mg/dL (7.8-10.44); Carbon Dioxide 27 mmol/L (23-31); Chloride 100 mmol/L (98-107); Estimated GFR-MDRD 77; Glucose 113 mg/dL (80-115); Potassium 3.8 mmol/L (3.5-5.1); Sodium 136 mmol/L (136-145)
[2019-03-26] MEDS: Losartan 25 MG TAB PO SCH (07:51)
[2019-03-26] MEDS: predniSONE 20 MG TAB PO SCH (07:51)
[2019-03-26] MEDS ORDERED: Regadenoson 0.4 MG/5 ML SYRINGE ONE (09:56)
--- NOTE | 2019-03-26 11:40 | NM ---
EXAM: CARDIAC SPECT HISTORY: Chest pain TECHNIQUE: A myocardial perfusion scan was performed using the single isotope 1 day protocol with jesus hnetium 99m sestamibi. [11th 11 mCi] was injected intravenously for the rest exam followed by 33 mCifor the stress study. Pharmacologic stress with Lexiscan was monitored and interpreted by Dr. Bah FINDINGS: Homogeneous tracer distribution is seen in the myocardial segments on stress and rest image s without fixed or reversible defects. Gated SPECT LVEF: 62% Wall motion exam: Normal IMPRESSION: Normal myocardial perfusion scan
[2019-03-26 12:46] VITALS: BP 141/65; TEMP 97.7
--- NOTE | 2019-03-27 11:09 | EKG ---
Test Reason : Blood Pressure : / mmHG Vent. Rate : 082 BPM Atrial Rate : 082 BPM P-R Int : 128 ms QRS Dur : 090 ms QT Int : 374 ms P-R-T Axes : 033 -18 040 degrees QTc Int : 436 ms Normal sinus rhythm Possible Anterior infarct , age undetermined Abnormal ECG Confirmed by LALITO MASTERS M.D. ([id number]), book or script editor SABINA BENITEZ ([id number]) on 03/27/2019 11:08:57 AM Referred By: Confirmed By:LALITO MASTERS M.D.
== END 2019-03-26 13:59 | disposition home or self-care (01) ==
LOC: ERS 17:23 → 2SW 21:24
PROVIDERS: ADMIT Emergency Medicine; ATTEND Emergency Medicine
DX: R06.02 Shortness of breath (principal); R10.13 Epigastric pain; R07.9 Chest pain, unspecified; I10 Essential (primary) hypertension; J42 Unspecified chronic bronchitis; R32 Unspecified urinary incontinence; Z79.899 Other long term (current) drug therapy; Z87.891 Personal history of nicotine dependence; Z88.2 Allergy status to sulfonamides; Z88.8 Allergy status to other drugs, medicaments and biological substances
CPT/HCPCS: 71045; 76705; 78452; 80048; 80053 ×2; 82550; 83690 ×2; 84145; 84484 ×2; 85025 ×3; 85379; 85652; 93005; 93017; 94640 ×3; 94760; 99285; A9500; G0378 ×2; 36415; J2785; J7512; J7620

== ENCOUNTER 2019-08-31 12:42 | Outpatient (CLI) | payer MEDICARE ==
--- NOTE | 2019-08-31 13:06 | RAD ---
EXAM: Chest 2 views: HISTORY: Dyspnea COMPARISON: None. FINDINGS: There is a normal-sized cardiomediastinal silhouette. Atelectasis is seen in the left lung base. Th ere is no evidence of consolidation, mass, or pleural effusion. The bones are unremarkable. IMPRESSION: No evidence of acute cardiopulmonary disease
== END 2019-08-31 12:43 | disposition home or self-care (01) ==
LOC: RAD 12:42
PROVIDERS: ATTEND Internal Medicine Critical Care Medicine
DX: R06.00 Dyspnea, unspecified (principal)
CPT/HCPCS: 71046

== ENCOUNTER 2019-09-25 05:00 | Emergency (ER) | payer MEDICARE ==
--- NOTE | 2019-09-25 08:01 | RAD ---
RADIOGRAPH CHEST 2 VIEWS: DATE: 09/25/2019 HISTORY: 69-year-old female with cough FINDINGS: There is no airspace density, pulmonary edema, pleural effusion, pneumothorax, or cardiomegaly. IMPRESSION: No acute cardiopulmonary findings.
--- NOTE | 2019-10-01 06:01 | PQF ---
[facility] POST DISCHARGE CLINICAL DOCUMENTATION IMPROVEMENT CLARIFICATION FORM l Todays Date: 09/30/2019 l Patients Name Rosina Bautista l l Admit Date 09/25/2019 l Disch Date 09/25/2019 Atmospheric Technician Name Kath gray Email: [email or web address] Cell: [phone] To be completed by Atmospheric Technician: Present Clinical Indicators - Signs / Symptoms Results and Location in Medical Record [ ] Documentation of: [ ] [ ] Documentation of: [ ] [ ] Documentation of: [ ] [ ] Documentation of: [ ] [ ] Risks [ ] [ ] [ ] Treatment [x] Bronchitis Query for Specificity of Acute or Chronic of Bronchitis. [ ] [ ] To be completed by Physician: DR. Ramya MD, [facility] The documentation in this patients record requires clarification to ensure coding compliance and accuracy. Check the appropriate box and include in your discharge summary. [ ] [ ] [ ] [ ] Please check this box if this does not apply to this patient [ ] Unable to determine [ ] Other diagnosis: Review the following information and exercise your independent professional judgment in responding to the clarification. Based upon the clinical findings, risk factors, and treatment, please clarify if you are treating one of the above probable or suspected diagnoses. Physician Signature: Date Time MTDD
== END 2019-09-25 05:42 | disposition home or self-care (01) ==
LOC: ERS 05:00
DX: J20.9 Acute bronchitis, unspecified (principal); I10 Essential (primary) hypertension; E78.5 Hyperlipidemia, unspecified; Z87.891 Personal history of nicotine dependence; Z79.899 Other long term (current) drug therapy
CPT/HCPCS: 71046

== ENCOUNTER 2019-12-01 07:31 | Day surgery (SDC) | payer MEDICARE ==
[2019-11-30 11:18] VITALS: BMI 28.8
--- NOTE | 2019-12-01 10:29 | OP ---
DATE OF PROCEDURE: 12/01/2019 PROCEDURE PERFORMED: Colonoscopy with polypectomy. INDICATION FOR PROCEDURE: Personal history of colon polyps. DESCRIPTION OF PROCEDURE: After the risks and benefits of the procedure were explained to the patient including risks of bleeding, infection, perforation, reactions to anesthesia, aspiration, and/or pain, informed consent was obtained. The patient was then taken to the endoscopy suite, and after being placed in the left lateral decubitus position, deep sedation was administered via propofol and anesthesia support. Once adequate sedation was achieved, a digital rectal examination was performed followed by introduction of the standard colonoscope into the rectum with advancement to the terminal ileum without difficulty. The quality of the prep was excellent. The patient tolerated the procedure well with no immediate perioperative complications. Upon conclusion of the procedure, all equipment was removed from the patient and she was transferred to Day Stay in satisfactory condition. FINDINGS: Digital rectal exam, medium-sized external hemorrhoids (nonbleeding) were seen on external examination. No evidence of thrombosis. Colon findings: Normal-appearing mucosa was seen in the terminal ileum as well as at the appendiceal orifice and ileocecal valve. A 4 to 5 mm polyp was seen in the cecum and completely removed with cold snare polypectomy. It was retrieved and placed in a specimen jar for evaluation. Normal-appearing mucosa was then seen in the ascending and transverse colons. An additional polyp measuring 4 to 5 mm in size was seen in the descending colon and completely removed with cold snare polypectomy. It was retrieved and placed in a specimen jar for further evaluation. Scattered small and medium-sized diverticula were seen in the sigmoid colon. A 3 mm polyp was seen in the rectum and completely removed with cold snare polypectomy. It was retrieved and placed in a specimen jar for further evaluation. Otherwise, the remainder of the rectum appeared normal on rectal retroflexion, small to medium-sized internal hemorrhoids were also seen. IMPRESSION: 1. 4 to 5 mm cecal polyp, status post cold snare polypectomy. 2. 4 to 5 mm descending colon polyp, status post cold snare polypectomy. 3. Mild sigmoid diverticulosis. 4. 3 mm rectal polyp, status post cold snare polypectomy. 5. Medium-sized internal and external hemorrhoids. RECOMMENDATIONS: 1. We would have the patient start a higher fiber diet given the presence of diverticulosis and hemorrhoids. 2. We will follow up on the biopsy results with repeat colonoscopy interval depending on pathology results. 3. If all three polyps are adenomatous, would repeat the colonoscopy in three years, where as if two or less of the polyps are adenomatous, would repeat the colonoscopy in 5 years. 4. Continue current medications. 5. We would have the patient to follow up in the GI clinic in 6 weeks for further evaluation of her acid reflux and discussion of polyp results. Job ID: [id number]
[2019-12-01] MEDS ORDERED: PROPOFOL 200 MG/20 ML VIAL ONE (11:51)
== END 2019-12-01 10:40 | disposition home or self-care (01) ==
LOC: SDC 07:31
PROVIDERS: ATTEND Internal Medicine
PROC: 0DBH8ZZ Excision of Cecum, Via Natural or Artificial Opening Endoscopic (ICD-10-PCS; principal; 2019-12-01)
PROC: 0DBP8ZZ Excision of Rectum, Via Natural or Artificial Opening Endoscopic (ICD-10-PCS; 2019-12-01)
PROC: 0DBM8ZZ Excision of Descending Colon, Via Natural or Artificial Opening Endoscopic (ICD-10-PCS; 2019-12-01)
DX: Z12.11 Encounter for screening for malignant neoplasm of colon (principal); D12.0 Benign neoplasm of cecum; K63.5 Polyp of colon; K57.30 Diverticulosis of large intestine without perforation or abscess without bleeding; K64.8 Other hemorrhoids; K64.4 Residual hemorrhoidal skin tags; K21.9 Gastro-esophageal reflux disease without esophagitis; Z86.010 Personal history of colon polyps; Z88.1 Allergy status to other antibiotic agents; Z88.2 Allergy status to sulfonamides; Z88.5 Allergy status to narcotic agent; Z88.6 Allergy status to analgesic agent
CPT/HCPCS: 88305; J2704

== ENCOUNTER 2019-12-22 10:59 | Outpatient (CLI) | payer MEDICARE ==
--- NOTE | 2019-12-22 11:24 | RAD ---
TWO VIEWS LUMBAR SPINE: COMPARISON: 10/28/2018. HISTORY: Recent fall. Previous fusion surgery. FINDINGS: There are 5 lumbar-type vertebrae. Lumbar spine vertebral body height is maintained. There is no frac ture. Unilateral right-sided transpedicular screw at L5 and S1, unchanged. There is stable rightward curvature of the lumbar spine centered at the L2 level. There is moderate degenerative disc disease at L1-L2, L2-L3. There is 0.4 cm of anterolisthesis of L5 upon S1. IMPRESSION: Interval development of grade 1 anterolisthesis of L5 upon S1. Transcribed Date/Time: 12/22/2019 11:32 AM
--- NOTE | 2019-12-22 11:25 | RAD ---
EXAM: 3 views of the cervical spine HISTORY: Neck pain after fall COMPARISON: None FINDINGS: AP, lateral, and open mouth odontoid views of the cervical spine shows the patient to be st atus post fusion of C4-C7. An artificial disc is seen in the C4/5 disc space.The vertebral bodies demonstrate normal height without acute fracture or subluxation. No prevertebral soft tissue swelling is seen. IMPRESSION: Postsurgical changes of the cervical spine without evidence of complication.
== END 2019-12-22 11:00 | disposition home or self-care (01) ==
LOC: TBSIIMAG 10:59
PROVIDERS: ATTEND Surgery
DX: M54.2 Cervicalgia (principal); M54.5 Low back pain; M43.17 Spondylolisthesis, lumbosacral region; Z98.1 Arthrodesis status
CPT/HCPCS: 72040; 72100

== ENCOUNTER 2020-03-07 13:29 | Outpatient (CLI) | payer MEDICARE ==
--- NOTE | 2020-03-15 16:20 | MMO ---
Bilateral MAMMO Bilat Screen [facility]DI+MILAGRO. CLINICAL HISTORY: Patient is 69 years old and is seen for screening. The patient has no family history of breast cancer. The patient has no personal history of cancer. VIEWS: The views performed were: bilateral craniocaudal with tomosynthesis and bilateral mediolateral oblique with tomosynthesis. FILMS COMPARED: The present examination has been compared to prior imaging studies performed at [facility] on 10/08/2006, and at [facility] on 09/06/2015, 10/10/2017 and 02/04/2019. This study has been interpreted with the assistance of computer-aided detection. MAMMOGRAM FINDINGS: There are scattered fibroglandular densities. There are no suspicious masses, suspicious calcifications, or new areas of architectural distortion. IMPRESSION: THERE IS NO MAMMOGRAPHIC EVIDENCE OF MALIGNANCY. A ROUTINE FOLLOW-UP MAMMOGRAM IN 1 YEAR IS RECOMMENDED. THE RESULTS OF THIS EXAM WERE SENT TO THE PATIENT. ACR BI-RADS Category 1 - Negative MAMMOGRAPHY NOTE: 1. A negative mammogram report should not delay a biopsy if a dominant of clinically suspicious mass is present. 2. Approximately 10% to 15% of breast cancers are not detected by mammography. 3. Adenosis and dense breasts may obscure an underlying neoplasm. Reported by: KAISER PEREIRA MD Electonically Signed: [id number]
== END 2020-03-07 13:30 | disposition home or self-care (01) ==
LOC: BICMAMMO 13:29
PROVIDERS: ATTEND Family Medicine
DX: Z12.31 Encounter for screening mammogram for malignant neoplasm of breast (principal)
CPT/HCPCS: 77063; 77067

== ENCOUNTER 2020-05-20 17:28 | Emergency (ER) | payer MEDICARE ==
--- NOTE | 2020-05-20 19:25 | RAD ---
THREE VIEWS OF THE LEFT SHOULDER: 05/20/20 COMPARISON: None. HISTORY: Fall, pain. FINDINGS: Mild degenerative change of the left acromioclavicular joint. No widening of the AC or CC interspace. No displaced fracture or dislocation. IMPRESSION: No acute findings. POS: [facility]
[2020-05-20] MEDS ORDERED: Morphine 4 MG/ML VIAL ONE (20:04)
[2020-05-20] MEDS ORDERED: Acetaminophen 325 MG TAB ONE (20:05)
--- NOTE | 2020-05-20 20:20 | RAD ---
TWO VIEWS OF THE LEFT HUMERUS: 05/20/20 COMPARISON: None. HISTORY: Fall, trauma, pain. FINDINGS: No displaced fracture is seen. IMPRESSION: No acute osseous abnormality. POS: [facility]
[2020-05-20] MEDS ORDERED: Ibuprofen 200 MG TAB ONE (20:30)
== END 2020-05-20 20:35 | disposition home or self-care (01) ==
LOC: ERS 17:28
DX: S40.012A Contusion of left shoulder, initial encounter (principal); I10 Essential (primary) hypertension; E78.5 Hyperlipidemia, unspecified; K21.9 Gastro-esophageal reflux disease without esophagitis; Z79.899 Other long term (current) drug therapy; W19.XXXA Unspecified fall, initial encounter
CPT/HCPCS: 96372; J2270

== ENCOUNTER 2020-07-04 12:17 | Emergency (ER) | payer MEDICARE ==
[~2020-07-04 12:17] MED LIST: Iopamidol-370 76% 500 ML 1 ML ONE
[2020-07-04] MEDS ORDERED: Diazepam 5 MG TAB ONE (13:00)
[2020-07-04] MEDS ORDERED: Meclizine HCl 25 MG TAB ONE (13:00)
[2020-07-04 13:21] LABS: Bilirubin Negative (Negative); Blood, Urine Negative (Negative); Clarity Clear (Clear); Glucose, Urine (Dipstick) Normal (Negative); Ketone, Urine Negative (Negative); Leukocyte Negative Leu/uL (Negative); Nitrite Negative (Negative); Protein, Urine (Dipstick) Negative (Neg-Trace); Specific Gravity, Urine 1.005 (1.002-1.036); Urobilinogen Normal mg/dL (Less than 2)
[2020-07-04 13:23] LABS: #Eosinphils 0.1 thou/uL (0.0-0.7); #Lymphocytes 2.6 thou/uL (1.20-3.40); #Monocytes 0.8 thou/uL (0.11-0.59); #Neutrophils 2.5 thou/uL (1.40-6.50); %Basophils 0.8 % (0.0-1.0); %Lymphocytes 43.3 % (21.0-51.0); %Monocytes 13.5 % (0.0-10.0); %Neutrophils 41.4 % (42.0-75.0); Hemoglobin 12.5 g/dL (12.0-16.0); Mean Corpuscular Hemoglobin 29.8 pg (27.0-31.0); Mean Corpuscular Volume 93.1 fL (78.0-98.0); Mean Platelet Volume 6.2 fL (7.4-10.4); Platelet Count 323 thou/uL (130-400); RBC Distribution Width 14.4 % (11.5-14.5)
[2020-07-04 13:35] LABS: PTT 29.5 sec (22.9-36.1)
[2020-07-04 13:45] LABS: ALT (SGPT) 15 U/L (8-55); AST (SGOT) 12 U/L (5-34); Albumin 4.3 g/dL (3.4-4.8); Alkaline Phosphatase 41 U/L (40-110); Anion Gap 10 mmol/L (10-20); BUN (Urea Nitrogen) 13 mg/dL (9.8-20.1); Bilirubin, Total 0.5 mg/dL (0.2-1.2); Calc. Creatinine Clearance 0 mL/min (70-130); Calcium 9.4 mg/dL (7.8-10.44); Carbon Dioxide 30 mmol/L (23-31); Chloride 102 mmol/L (98-107); Estimated GFR-MDRD 77; Globulin 2.4 g/dL (2.4-3.5); Glucose 85 mg/dL (83-110); Potassium 3.9 mmol/L (3.5-5.1); Protein, Total 6.7 g/dL (6.0-8.3); Sodium 138 mmol/L (136-145)
--- NOTE | 2020-07-04 20:55 | CT ---
CTA HEAD AND NECK WITH AND WITHOUT CONTRAST: Date: 07/04/2020 Axial tomograms obtained through the head without IV contrast. This was followed by CTA of head with IV enhancement following angio protocol with multiplanar reconstruction and 3D postprocessing. INDICATION: Vertigo. FINDINGS: CT HEAD WITHOUT CONTRAST: The ventricles have normal size and position. Mild chronic ischemic white matter changes are noted. T here is no evidence of mass or hemorrhage. No evidence of acute infarct. Paranasal sinuses and mastoi ds are clear. IMPRESSION: No acute findings. CTA HEAD: The intracranial internal carotid arteries are patent and symmetric. Cavernous ICAs are patent and sy mmetric. Anterior cerebral arteries, middle cerebral arteries, and posterior cerebral arteries are patent and symmetric. Basilar artery is patent. IMPRESSION: Unremarkable CTA head. CTA NECK: Axial tomograms obtained with multiplanar reconstruction and 3D postprocessing following angio protoc ol. INDICATION: Vertigo. FINDINGS: No evidence of stenosis at the origin of the arch vessels. Both common carotid arteries are patent and symmetric. Mild to moderate atherosclerotic changes in the right bulb; however, no evidence of internal carotid artery stenosis seen on either side. Both internal carotid arteries are patent and symmetric above th e bulbs. There is a dominant left vertebral artery. A small right vertebral artery is patent. Facial artery is patent. No soft tissue abnormality in neck identified. The cervical spine shows postoperative changes with prior fusion at C5-6. Disc implant at C4-5. IMPRESSION: Unremarkable CTA neck. Mild atherosclerotic change in the right bulb without evidence of carotid sten osis.
--- NOTE | 2020-07-08 15:44 | EKG ---
Test Reason : Blood Pressure : / mmHG Vent. Rate : 071 BPM Atrial Rate : 071 BPM P-R Int : 140 ms QRS Dur : 088 ms QT Int : 416 ms P-R-T Axes : 032 -01 056 degrees QTc Int : 452 ms Normal sinus rhythm Normal ECG Confirmed by CODY GOODRICH DO ([id number]), desk editor SABINA BENITEZ ([id number]) on 07/08/2020 3:43:30 PM Referred By: Confirmed By:CODY GOODRICH DO
== END 2020-07-04 16:05 | disposition home or self-care (01) ==
LOC: ERS 12:17
DX: R42 Dizziness and giddiness (principal); I10 Essential (primary) hypertension; E78.5 Hyperlipidemia, unspecified; Z79.899 Other long term (current) drug therapy
CPT/HCPCS: 36415; 70496; 70498; 80053; 81003; 84484; 85025; 85610; 85730; 93005; Q9967

== ENCOUNTER 2020-07-06 08:32 | Outpatient (CLI) | payer MEDICARE ==
--- NOTE | 2020-07-06 09:25 | RAD ---
EXAM: XR Sacroiliac Joints >=3 View DATE: 07/06/2020 12:00 AM INDICATION: Sacroiliitis COMPARISON: Lumbar spinal radiograph dated December 22, 2019 FINDING: There is lucency surrounding the pedicle screws on the right at L5-S1 suspicious for loosen ing. This is new from the comparison examination. Subchondral bone plate of the SI joints bilaterally are intact. There is some mild degenerative change of both SI joints. Mild degenerative c hange stable involving both hips, left greater than right. IMPRESSION:Findings suspicious for loosening of the right-sided pedicle screws at L5-S1. Mild SI join t degenerative change without evidence of overt erosive change.
--- NOTE | 2020-07-06 10:01 | BD ---
DEXA BONE DENSITY STUDY: HISTORY: Osteoporosis. FINDINGS: Exam: DEXA Bone Density Left Hip: Femoral Neck: 0.674 T-Score: -1.6 Total Femur: 0.984 T-Score: +0.3 Evidence for osteopenia with increased risk for fracture. Right Hip: Femoral Neck: 0.603 T-Score: -2.2 Total Femur: 0.918 T-Score: -0.2 Evidence for osteopenia with increased risk for fracture. POS: OFF
== END 2020-07-06 08:33 | disposition home or self-care (01) ==
LOC: BICMAMMO 08:32
PROVIDERS: ATTEND Internal Medicine Rheumatology
DX: M81.0 Age-related osteoporosis without current pathological fracture (principal); M46.1 Sacroiliitis, not elsewhere classified; M85.852 Other specified disorders of bone density and structure, left thigh; M85.851 Other specified disorders of bone density and structure, right thigh; Z96.9 Presence of functional implant, unspecified
CPT/HCPCS: 72202; 77080

== ENCOUNTER 2020-07-27 10:00 | Inpatient (IN) | payer MEDICARE ==
[2020-07-31 10:47] VITALS: BMI 29.7
[2020-08-01] MEDS ORDERED: Fentanyl 100 MCG/2 ML VIAL ONE ×2 (06:13→06:31)
[2020-08-01] MEDS ORDERED: Clindamycin/D5W 900 mg/50 ml Premix Bag ONE (06:28)
[2020-08-01] MEDS ORDERED: Levofloxacin 500 mg/D5W 100 ml Premix Bag ONE (06:28)
[2020-08-01] MEDS ORDERED: Tranexamic Acid 1,000 MG/10 ML VIAL ONE (06:29)
[2020-08-01] MEDS ORDERED: Sodium Chloride 0.9% 100 ML ONE (06:29)
[2020-08-01] MEDS ORDERED: Vancomycin 1.5 GRAM/300 ML BAG ONE (06:29)
[2020-08-01] MEDS ORDERED: Midazolam HCl 2 mg/2 ml Vial ONE (06:30)
[2020-08-01] MEDS ORDERED: Fentanyl 100 MCG/2 ML VIAL IV PRN (06:58)
[2020-08-01] MEDS ORDERED: Acetaminophen 325 MG TAB PO PRN ×2 (07:00→07:04)
[2020-08-01] MEDS ORDERED: HYDROcodone/Acetaminophen 10/325 mg Tablet PO PRN (07:00)
[2020-08-01] MEDS ORDERED: Zolpidem Tartrate 5 MG TAB PO PRN ×2 (07:00→07:04)
[2020-08-01] MEDS ORDERED: Ropivacaine HCl/PF 250 ML in Premix Bag 1 BAG NERVE BLCK SCH (07:00)
[2020-08-01] MEDS ORDERED: traMADol HCl 50 MG TAB PO PRN (07:00)
[2020-08-01] MEDS ORDERED: Promethazine HCl 25 MG/ML VIAL IM PRN ×3 (07:00→08:52)
[2020-08-01] MEDS ORDERED: Ondansetron PF 4 MG/2 ML Vial IVP PRN ×2 (07:00→07:04)
[2020-08-01] MEDS ORDERED: diphenhydrAMINE 25 MG CAP PO PRN (07:04)
[2020-08-01] MEDS ORDERED: Meclizine HCl 25 MG TAB PO PRN (07:07)
[2020-08-01] MEDS ORDERED: Albuterol Sulfate 1.25 MG/3 ML NEB NEB PRN (08:20)
[2020-08-01] MEDS ORDERED: Promethazine HCl 25 MG/ML VIAL SLOW IVP PRN (08:52)
[2020-08-01] MEDS ORDERED: Ondansetron HCl/PF 4 MG/2 ML Vial IVP PRN (08:52)
[2020-08-01] MEDS ORDERED: Meperidine HCl/PF 25 MG/ML VIAL ONE (09:16)
--- NOTE | 2020-08-01 09:23 | RAD ---
2 views right knee: 08/01/2020 COMPARISON: None HISTORY: Evaluate knee following total knee arthroplasty FINDINGS: Postoperative gas and fluid noted within the right knee joint. Tibial and femoral component s are present, with no evidence for hardware failure, acute fracture, or dislocation. Posterior postoperative changes of the patella noted. Subcutaneous gas noted anterior to the patella as well. IMPRESSION: Radiographic evidence of recent right total knee arthroplasty. No acute fracture or dislo cation seen.
[2020-08-01] MEDS: Sodium Chloride 0.9% 1,000 ML IV SCH ×2 (11:32→11:59)
[2020-08-01] MEDS: Aspirin 81 mg Enteric Coated Tablet PO SCH ×2 (11:32→21:32)
[2020-08-01] MEDS: Cholecalciferol 1,000 UNITS (25 MCG) TAB PO SCH (11:33)
[2020-08-01] MEDS: Losartan 25 MG TAB PO SCH (11:33)
[2020-08-01] MEDS: Ferrous Gluconate 324 MG TAB PO SCH ×2 (11:33→21:33)
[2020-08-01] MEDS: Azelastine 137 MCG/Spray 30 ML NS SCH ×2 (11:33→21:35)
[2020-08-01] MEDS: Cyanocobalamin (Vitamin B-12) 1,000 MCG TAB PO SCH (11:33)
[2020-08-01] MEDS: Multivitamin W/ Minerals 1 TAB PO SCH (11:33)
[2020-08-01] MEDS: Ipratropium Bromide 0.06% Nasal Inhaler 15ml EA NARE SCH ×2 (11:33→21:35)
[2020-08-01] MEDS: Senokot S 8.6-50 MG TAB PO SCH ×2 (11:34→21:33)
[2020-08-01] MEDS: Ketorolac Tromethamine 30 MG/ML VIAL IVP SCH ×3 (11:57→23:32)
[2020-08-01] MEDS ORDERED: Ropivacaine 0.2% HCl/PF (40 MG/20 ML VIAL) ONE (13:36)
[2020-08-01] MEDS ORDERED: Bupivacaine HCl 0.5%/Epinephrine 1:200,000/PF 30 ml Vial ONE (13:36)
[2020-08-01] MEDS ORDERED: Lidocaine 1% PF 5 ML VIAL ONE (13:36)
[2020-08-01] MEDS ORDERED: Dexamethasone 20 MG/5 ML VIAL ONE (13:36)
[2020-08-01] MEDS ORDERED: PROPOFOL 200 MG/20 ML VIAL ONE (13:36)
[2020-08-01] MEDS ORDERED: Ondansetron PF 4 MG/2 ML Vial ONE (13:36)
[2020-08-01] MEDS ORDERED: Vancomycin 1 GM in Premix Bag 1 BAG IVPB SCH (18:00)
[2020-08-01] MEDS: Oxybutynin 5 MG TAB PO SCH (21:33)
[2020-08-01] MEDS: Atorvastatin Calcium 40 MG TAB PO SCH (21:33)
[2020-08-01] MEDS: Montelukast Sodium 10 mg Tablet PO SCH (21:34)
[2020-08-01] MEDS: traMADol HCl 50 MG TAB PO PRN (21:46)
[2020-08-02 05:13] LABS: Hemoglobin 11.5 g/dL (12.0-16.0); Mean Corpuscular HGB CONC 32.6 g/dL (32.0-36.0); Mean Corpuscular Hemoglobin 29.7 pg (27.0-31.0); Mean Corpuscular Volume 91.2 fL (78.0-98.0); Mean Platelet Volume 6.6 fL (7.4-10.4); Platelet Count 287 thou/uL (130-400); RBC Distribution Width 14.7 % (11.5-14.5); Red Blood Cell (RBC) Count 3.86 mill/uL (4.20-5.40); White Blood Cell (WBC) Count 12.8 thou/uL (4.8-10.8)
[2020-08-02] MEDS: Ketorolac Tromethamine 30 MG/ML VIAL IVP SCH ×4 (06:05→22:49)
[2020-08-02] MEDS: Sodium Chloride 0.9% 1,000 ML IV SCH ×3 (06:06→19:51)
--- NOTE | 2020-08-02 06:33 | OP ---
DATE OF PROCEDURE: 08/01/2020 PROCEDURE PERFORMED: Right total knee arthroplasty with Anastasiia Triathlon 4 femur, 4 tibia, 9 mm CS X3 polyethylene, and A29 patella, hardware removal from the right tibia, removal of a table staple from the right tibia. DECK OFFICER: Breann Jeffers PA-C ESTIMATED BLOOD LOSS: Minimal. SPECIMEN: None. DRAINS: None. COMPLICATION: None. TOURNIQUET TIME: 54 minutes. DESCRIPTION OF PROCEDURE: After the incision was made, I removed a table staple. I had to remove periosteum from around the bone. I then pried the edges of the staple up using osteotomes and removed the staple using pliers. After informed consent was obtained in the preoperative holding area, the patient was taken to the operative suite where general anesthesia was induced. Once adequate level of general anesthesia was obtained, the patient was positioned and a well-padded tourniquet was placed around the right proximal thigh. The right lower extremity was then prepped and draped in the usual sterile fashion. Prior to exsanguination, a time-out was called and all members of the surgical team agreed upon site, surgeon, and patient. The extremity was then exsanguinated and the tourniquet was raised. A midline longitudinal incision was then made directly over the patella extending 2 fingerbreadths above the superior pole of the patella and 2 fingerbreadths inferior to the inferior patellar pole of the patella. Deeper subcutaneous layers were dissected sharply and local bleeding was controlled with Bovie electrocautery. A quad tendon longitudinal split was then made sharply and a median parapatellar arthrotomy was carried out both sharp and with Bovie electrocautery, carried down to 1 fingerbreadth medial to the tibial tubercle. The knee was then placed into flexion and the patella was everted nicely, and a copious fat pad ectomy was performed allowing for greater exposure of the tibia. The computer-assisted distal femoral fiducial was then placed and pinned firmly, and the distal femoral cutting guide was pinned firmly into place. The oscillating saw was then used to remove the appropriate amount of bone. The 4-in-1 cutting block was then placed on the distal femur and the oscillating saw was used to remove the appropriate amount of bone off the anterior, posterior, and chamfer cuts. After completion of bone cuts, the anterior cruciate ligament was resected sharply and the posterior cruciate ligament retractor was placed and the tibia was subluxed for better exposure. Partial meniscectomies were carried out, and the tibial computer-assisted fiducial was pinned, and the cutting guide was placed. Oscillating saw was then used to remove the bone, with Hohmann retractors used to take care and protect the collateral ligaments. After the tibial resection was performed, a laminar torsion spring coiling machine setter was placed in between the freshened bone cuts. The knee placed at 90 degrees and further bilateral meniscectomies were carried out, and the curved osteotome and curettage were used to remove any excess bone spurs in the posterior compartment. The trial femoral component, tibial baseplate were placed with the appropriate polyethylene trial insert with an appropriate polyethylene spacer and patellar button. The knee was taken through full range of motion with flexion and extension from 0 to 90 degrees and patellar broach squarely in the trochlea without any squinting or subluxation noted. The knee was also stable to varus and valgus stressing at 0, 15, 45, and 90 degrees of flexion. The drawer was negative. All trial components were then removed and the keel punch was used to provide the appropriate defect in the tibia with a mallet. The freshened bone cuts were copiously irrigated with pulsatile lavage of about 1.5 L to remove all excess debris. The freshened bone cuts were then dried with suction and lap sponge. The knee was placed in flexion and retractors were placed to provide access to all bone cuts. Tobramycin-impregnated methyl methacrylate cement was then placed on the freshened bone cuts and implants which were malleted firmly into place. Curettage and Saranac elevators were used to remove any excess bone cement. The knee was placed into full extension and the patellar button was placed under compression, and the cement was allowed to cure. Once completed, the components were again taken through full range of motion and copious irrigation of the knee was carried out with another liter of normal saline. All components were inspected fully with full range of motion and varus and valgus stressing. There was no laxity noted and full extension was observed clinically. Primary closure was accomplished with #2 interrupted Vicryl stitch of the arthrotomy defect. This was oversewn with a #2 running Quill barbed stitch. The gravitational platelet system was then injected into the arthrotomy prior to closure. The subcutaneous layer was then closed with a running 0 barbed Monocryl stitch and skin closure accomplished with a running subcuticular 3-0 Monocryl barbed Quill stitch and augmented with cement on the skin. Tourniquet was lowered. Good spontaneous return of distal pulses was noted clinically and a sterile dressing was applied to the incision. The procedure was terminated without any complications. The patient was awakened in the operative suite and the patient was taken to the recovery room in stable condition. Job ID: [id number]
[2020-08-02] MEDS: Ipratropium Bromide 0.06% Nasal Inhaler 15ml EA NARE SCH ×2 (09:03→19:44)
[2020-08-02] MEDS: Aspirin 81 mg Enteric Coated Tablet PO SCH ×2 (09:17→19:43)
[2020-08-02] MEDS: Cholecalciferol 1,000 UNITS (25 MCG) TAB PO SCH (09:18)
[2020-08-02] MEDS: Cyanocobalamin (Vitamin B-12) 1,000 MCG TAB PO SCH (09:18)
[2020-08-02] MEDS: Multivitamin W/ Minerals 1 TAB PO SCH (09:19)
[2020-08-02] MEDS: Ferrous Gluconate 324 MG TAB PO SCH ×2 (09:19→19:43)
[2020-08-02] MEDS: Losartan 25 MG TAB PO SCH (09:19)
[2020-08-02] MEDS: Senokot S 8.6-50 MG TAB PO SCH ×2 (09:20→19:43)
[2020-08-02] MEDS: Azelastine 137 MCG/Spray 30 ML NS SCH ×2 (09:23→19:44)
[2020-08-02] MEDS: Atorvastatin Calcium 40 MG TAB PO SCH (19:43)
[2020-08-02] MEDS: Oxybutynin 5 MG TAB PO SCH (19:43)
[2020-08-02] MEDS: Montelukast Sodium 10 mg Tablet PO SCH (19:44)
[2020-08-02] MEDS: traMADol HCl 50 MG TAB PO PRN (22:48)
[2020-08-03] MEDS: HYDROcodone/Acetaminophen 10/325 mg Tablet PO PRN (02:18)
[2020-08-03] MEDS: Ketorolac Tromethamine 30 MG/ML VIAL IVP SCH (05:05)
[2020-08-03] MEDS: Aspirin 81 mg Enteric Coated Tablet PO SCH ×2 (08:09→19:35)
[2020-08-03] MEDS: Multivitamin W/ Minerals 1 TAB PO SCH (08:10)
[2020-08-03] MEDS: Cholecalciferol 1,000 UNITS (25 MCG) TAB PO SCH (08:10)
[2020-08-03] MEDS: Losartan 25 MG TAB PO SCH (08:11)
[2020-08-03] MEDS: Senokot S 8.6-50 MG TAB PO SCH ×2 (08:11→19:37)
[2020-08-03] MEDS: Ferrous Gluconate 324 MG TAB PO SCH ×2 (08:11→19:36)
[2020-08-03] MEDS: traMADol HCl 50 MG TAB PO PRN ×2 (08:12→19:36)
[2020-08-03] MEDS: Cyanocobalamin (Vitamin B-12) 1,000 MCG TAB PO SCH (08:12)
[2020-08-03] MEDS: Ipratropium Bromide 0.06% Nasal Inhaler 15ml EA NARE SCH ×2 (08:16→19:36)
[2020-08-03] MEDS: Azelastine 137 MCG/Spray 30 ML NS SCH ×2 (08:17→19:36)
[2020-08-03] MEDS: Sodium Chloride 0.9% 1,000 ML IV SCH ×3 (09:22→20:31)
[2020-08-03] MEDS ORDERED: Ropivacaine HCl/PF 250 ML in Premix Bag 1 BAG NERVE BLCK SCH (12:00)
[2020-08-03] MEDS: Oxybutynin 5 MG TAB PO SCH (19:35)
[2020-08-03] MEDS: Atorvastatin Calcium 40 MG TAB PO SCH (19:36)
[2020-08-03] MEDS: Montelukast Sodium 10 mg Tablet PO SCH (19:37)
[2020-08-04 07:09] VITALS: TEMP 98
[2020-08-04] MEDS: HYDROcodone/Acetaminophen 10/325 mg Tablet PO PRN (08:29)
[2020-08-04] MEDS: Senokot S 8.6-50 MG TAB PO SCH (09:10)
[2020-08-04] MEDS: Multivitamin W/ Minerals 1 TAB PO SCH (09:11)
[2020-08-04] MEDS: Cyanocobalamin (Vitamin B-12) 1,000 MCG TAB PO SCH (09:11)
[2020-08-04] MEDS: Cholecalciferol 1,000 UNITS (25 MCG) TAB PO SCH (09:11)
[2020-08-04] MEDS: Losartan 25 MG TAB PO SCH (09:11)
[2020-08-04] MEDS: Aspirin 81 mg Enteric Coated Tablet PO SCH (09:11)
[2020-08-04] MEDS: Azelastine 137 MCG/Spray 30 ML NS SCH (09:12)
[2020-08-04] MEDS: Ferrous Gluconate 324 MG TAB PO SCH (09:12)
[2020-08-04] MEDS: Ipratropium Bromide 0.06% Nasal Inhaler 15ml EA NARE SCH (09:12)
[2020-08-04 11:01] VITALS: BP 158/75
== END 2020-08-04 12:58 | disposition home or self-care (01) | DRG 470 ==
LOC: SJJU 08-01 05:31
PROVIDERS: ADMIT Orthopaedic Surgery; ATTEND Orthopaedic Surgery
PROC: 0SRC0J9 Replacement of Right Knee Joint with Synthetic Substitute, Cemented, Open Approach (ICD-10-PCS; principal; 2020-08-01)
DX: M17.11 Unilateral primary osteoarthritis, right knee (principal); Z88.2 Allergy status to sulfonamides; Z88.1 Allergy status to other antibiotic agents; Z88.6 Allergy status to analgesic agent
CPT/HCPCS: 36415; 85027; C1713; C1776; J0670; J1100; J1885; J1956; J2175; J2250; J2405; J2704; J2795; J3010; J3370; J3490

== ENCOUNTER 2020-07-28 06:47 | Outpatient (CLI) | payer MEDICARE, OTHER ==
[2020-07-28 13:59] LABS: #Eosinphils 0.1 thou/uL (0.0-0.7); #Monocytes 0.9 thou/uL (0.11-0.59); #Neutrophils 2.7 thou/uL (1.40-6.50); %Basophils 0.6 % (0.0-1.0); %Eosinophils 1.9 % (0.0-10.0); %Lymphocytes 44.6 % (21.0-51.0); %Monocytes 13.4 % (0.0-10.0); %Neutrophils 39.4 % (42.0-75.0); Mean Corpuscular HGB CONC 32.3 g/dL (32.0-36.0); Mean Corpuscular Hemoglobin 29.8 pg (27.0-31.0); Mean Corpuscular Volume 92.4 fL (78.0-98.0); Mean Platelet Volume 6.8 fL (7.4-10.4); Platelet Count 335 thou/uL (130-400); RBC Distribution Width 14.9 % (11.5-14.5); Red Blood Cell (RBC) Count 4.38 mill/uL (4.20-5.40); White Blood Cell (WBC) Count 6.7 thou/uL (4.8-10.8)
[2020-07-28 14:08] LABS: INR-International Normal Ratio 0.9; PTT 28.3 sec (22.9-36.1); Prothrombin Time 12.6 sec (12.0-14.7)
[2020-07-28 14:18] LABS: Bacteria/HPF None Seen HPF (None Seen); Bilirubin Negative (Negative); Blood, Urine Negative (Negative); Clarity Clear (Clear); Glucose, Urine (Dipstick) Normal (Negative); Ketone, Urine Negative (Negative); Leukocyte Negative Leu/uL (Negative); Nitrite Negative (Negative); Protein, Urine (Dipstick) Negative (Neg-Trace); RBC/HPF 0-3 HPF (0-3); Specific Gravity, Urine 1.017 (1.002-1.036); Squamous Epithelial 0-3 HPF (0-3); Urobilinogen Normal mg/dL (Less than 2); WBC/HPF 0-3 HPF (0-3)
[2020-07-28 14:27] LABS: Anion Gap 14 mmol/L (10-20); BUN (Urea Nitrogen) 12 mg/dL (9.8-20.1); Calc. Creatinine Clearance 0 mL/min (70-130); Calcium 8.9 mg/dL (7.8-10.44); Carbon Dioxide 24 mmol/L (23-31); Chloride 102 mmol/L (98-107); Estimated GFR-MDRD 73; Glucose 107 mg/dL (83-110); Potassium 4.1 mmol/L (3.5-5.1); Sodium 136 mmol/L (136-145)
[2020-07-29 14:48] LABS: SARS-CoV-2 MS2 Positive; SARS-CoV-2 N Gene Negative; SARS-CoV-2 S Gene Negative; SARS-CoV-2 by NAA Not Detected (NotDetected); SARS-CoV-2 orf1ab Negative
== END 2020-07-28 06:48 | disposition home or self-care (01) ==
LOC: LABBT 06:47
PROVIDERS: ATTEND Orthopaedic Surgery
DX: Z01.812 Encounter for preprocedural laboratory examination (principal); Z20.828 Contact with and (suspected) exposure to other viral communicable diseases; M17.11 Unilateral primary osteoarthritis, right knee
CPT/HCPCS: 80048; 81001; 85025; 85610; 85730; U0003; 87635; 93005; 93010

== ENCOUNTER 2020-09-01 14:54 | Outpatient (CLI) | payer MEDICARE ==
--- NOTE | 2020-09-01 15:43 | CT ---
CT lumbar spine without contrast: HISTORY: Lumbar radicular pain with radiation of pain to right hip. Patient's had low back pain for many years . History of prior lumbar surgeries COMPARISON: No prior CT exams of the lumbar spine available FINDINGS: Vascular calcifications are seen in the abdominal aorta and involving the iliac arteries. A nonobstru cting 3 to 4 mm calculus is seen in the inferior pole left kidney. Right convex scoliosis of the lumbar spine is present. The vertebral body heights are within normal l imits. No fracture or subluxation is identified. Degenerative postoperative changes lumbar spine are seen. L1-2: Mild loss of intervertebral disc height with mild endplate degenerative changes. Mild disc oste ophyte complex is present with slight flattening of the ventral aspect of the thecal sac. Right neural foramen is patent, but there is mild left-sided neural foraminal narrowing. Facet degenerative changes are seen on the left. L2-3: Loss of intervertebral disc height with mild endplate degenerative changes. Broad-based disc os teophyte complex is present with a larger central and left paracentral disc osteophyte complex. This results in severe narrowing of the subarticular zone on the left and results in mass effect on t he central and left anterolateral aspect of the thecal sac with generalized mild narrowing of the central spinal canal. Right neural foramen is patent. There is mild to moderate left-sided neural for aminal narrowing. This finding was similar to MRI of the lumbar spine in 2017. L3-4: Minimal disc osteophyte complex is present. There is no significant central canal narrowing pre sent. Neural foramina are patent. L4-5: Mild broad-based disc osteophyte complex and facet hypertrophic changes. Mild central spinal ca nal and right neural foraminal narrowing. The left neural foramen is patent. L5-S1: Postoperative changes are present related to posterior fusion with right-sided pedicular screw s and interlocking sugar transfixing this level. Minimal lucency is seen adjacent to the pedicular screw within the S1 vertebral body which could be related to loosening. Right laminotomy defect is se en at this level. There is soft tissue density seen in the region of the laminotomy defect which abuts the right posterior lateral aspect of the thecal sac and is likely attributable to mild scarrin g. Loss of intervertebral disc height with vacuum phenomenon in the intervertebral disc is noted. There is a broad-based disc osteophyte complex present which is greater laterally and extends into ea ch neural foramen resulting in severe bilateral neural foraminal narrowing greater on the right. There is no significant deformity or mass effect on the thecal sac at this level. IMPRESSION: 1. Postoperative and degenerative changes of the cervical spine. 2. Disc osteophyte complex at the L5-S1 level with the disc osteophyte complex greater laterally and extending to each neural foramen resulting in severe bilateral neural foraminal narrowing. 3. Lucency surrounding the right S1 pedicular screw which may be related to hardware loosening. 4. Right convex scoliosis lumbar spine. 5. Nonobstructing left renal calculus.
== END 2020-09-01 14:55 | disposition home or self-care (01) ==
LOC: BICCT 14:54
PROVIDERS: ATTEND Neurological Surgery
DX: M54.16 Radiculopathy, lumbar region (principal); M46.1 Sacroiliitis, not elsewhere classified; M47.812 Spondylosis without myelopathy or radiculopathy, cervical region; M25.78 Osteophyte, vertebrae; R93.7 Abnormal findings on diagnostic imaging of other parts of musculoskeletal system; M41.9 Scoliosis, unspecified; N20.0 Calculus of kidney; Z98.890 Other specified postprocedural states
CPT/HCPCS: 72131

== ENCOUNTER 2021-01-19 09:41 | Emergency (ER) | payer MEDICARE ==
[2021-01-19] MEDS ORDERED: Naproxen 500 MG TAB ONE (11:39)
== END 2021-01-19 12:26 | disposition home or self-care (01) ==
LOC: ERS 09:41
DX: M25.561 Pain in right knee (principal); M25.572 Pain in left ankle and joints of left foot; M25.571 Pain in right ankle and joints of right foot; I10 Essential (primary) hypertension; E78.5 Hyperlipidemia, unspecified; K21.9 Gastro-esophageal reflux disease without esophagitis; W10.9XXA Fall (on) (from) unspecified stairs and steps, initial encounter

== ENCOUNTER 2021-03-12 10:52 | Outpatient (CLI) | payer MEDICARE | END 2021-03-12 10:53 | disposition home or self-care (01) | LOC: BICMAMMO 10:52 | PROVIDERS: ATTEND Family Medicine | DX: Z12.31 Encounter for screening mammogram for malignant neoplasm of breast (principal) | CPT/HCPCS: 77063; 77067 ==

== ENCOUNTER 2021-10-09 15:46 | Emergency (ER) | payer MEDICARE ==
[2021-10-09 16:16] LABS: #Basophils 0.1 thou/uL (0.0-0.2); #Monocytes 0.9 thou/uL (0.11-0.59); #Neutrophils 2.7 thou/uL (1.40-6.50); %Eosinophils 0.7 % (0.0-10.0); %Lymphocytes 44.7 % (21.0-51.0); %Monocytes 13.4 % (0.0-10.0); %Neutrophils 40.2 % (42.0-75.0); Hemoglobin 14.5 g/dL (12.0-16.0); Mean Corpuscular HGB CONC 33.7 g/dL (32.0-36.0); Mean Corpuscular Hemoglobin 32.6 pg (27.0-31.0); Mean Corpuscular Volume 96.5 fL (78.0-98.0); Mean Platelet Volume 5.9 fL (7.4-10.4); Platelet Count 321 thou/uL (130-400); RBC Distribution Width 12.2 % (11.5-14.5); Red Blood Cell (RBC) Count 4.47 mill/uL (4.20-5.40); White Blood Cell (WBC) Count 6.8 thou/uL (4.8-10.8)
[2021-10-09 16:42] LABS: ALT (SGPT) 34 U/L (8-55); AST (SGOT) 66 U/L (5-34); Albumin 4.5 g/dL (3.4-4.8); Alkaline Phosphatase 63 U/L (40-110); Anion Gap 12 mmol/L (10-20); BUN (Urea Nitrogen) 16 mg/dL (9.8-20.1); Bilirubin, Total 0.6 mg/dL (0.2-1.2); Calc. Creatinine Clearance 0 mL/min (70-130); Calcium 9.6 mg/dL (7.8-10.44); Carbon Dioxide 30 mmol/L (23-31); Chloride 100 mmol/L (98-107); Globulin 2.7 g/dL (2.4-3.5); Glucose 111 mg/dL (83-110); Potassium 3.5 mmol/L (3.5-5.1); Protein, Total 7.2 g/dL (5.8-8.1); Sodium 138 mmol/L (136-145)
== END 2021-10-09 17:27 | disposition home or self-care (01) ==
LOC: ERS 15:46
DX: R10.13 Epigastric pain (principal); I10 Essential (primary) hypertension; E78.5 Hyperlipidemia, unspecified; K21.9 Gastro-esophageal reflux disease without esophagitis
CPT/HCPCS: 36415; 71045; 74177; 80053; 83605; 83690; 84484; 85025; 93005; Q9967

== ENCOUNTER 2021-10-26 10:11 | Outpatient (CLI) | payer MEDICARE | END 2021-10-26 10:12 | disposition home or self-care (01) | LOC: TBSIIMAG 10:11 | PROVIDERS: ATTEND Orthopaedic Surgery | DX: M23.92 Unspecified internal derangement of left knee (principal) ==

== ENCOUNTER 2021-12-07 14:53 | Outpatient (CLI) | payer MEDICARE ==
[2021-12-07 16:24] LABS: #Basophils 0.1 10x3/uL (0.0-0.2); #Eosinphils 0.1 10x3/uL (0.0-0.5); #Monocytes 0.8 10x3/uL (0.0-1.1); #Neutrophils 2.7 10x3/uL (1.5-8.4); %Basophils 0.9 % (0.0-2.0); %Eosinophils 1.4 % (0.0-6.0); %Lymphocytes 46.2 % (18.0-47.0); %Monocytes 11.6 % (0.0-10.0); %Neutrophils 39.7 % (40.0-75.0); Hemoglobin 13.2 g/dL (12.0-15.5); Mean Corpuscular HGB CONC 32.5 g/dL (32.0-36.0); Mean Corpuscular Hemoglobin 31.7 pg (27.0-33.0); Mean Corpuscular Volume 97.4 fl (81.6-98.3); Mean Platelet Volume 8.8 fl (7.4-10.4); Platelet Count 290 10x3/uL (150-450); RBC Distribution Width 13.8 % (11.5-14.5); Red Blood Cell (RBC) Count 4.17 10x6/uL (3.90-5.03); White Blood Cell (WBC) Count 6.7 10x3/uL (3.5-10.5)
[2021-12-07 16:31] LABS: ALT (SGPT) 22 U/L (8-55); AST (SGOT) 13 U/L (5-34); Albumin 4.3 g/dL (3.4-4.8); Alkaline Phosphatase 74 U/L (40-110); Anion Gap 11 mmol/L (10-20); BUN (Urea Nitrogen) 17 mg/dL (9.8-20.1); Bilirubin, Total 0.3 mg/dL (0.2-1.2); Calc. Creatinine Clearance 0 mL/min (70-130); Calcium 9.8 mg/dL (7.8-10.44); Carbon Dioxide 30 mmol/L (23-31); Chloride 102 mmol/L (98-107); Globulin 2.4 g/dL (2.4-3.5); Glucose 101 mg/dL (83-110); Potassium 4.1 mmol/L (3.5-5.1); Protein, Total 6.7 g/dL (5.8-8.1); Sodium 139 mmol/L (136-145)
[2021-12-08 12:10] LABS: SARS-CoV-2 PCR by NAA Not Detected (NotDetected)
== END 2021-12-07 14:54 | disposition home or self-care (01) ==
LOC: LABBT 14:53
PROVIDERS: ATTEND Internal Medicine Cardiovascular Disease
DX: Z01.818 Encounter for other preprocedural examination (principal); R07.9 Chest pain, unspecified; Z20.822 Contact with and (suspected) exposure to COVID-19
CPT/HCPCS: 80053; 85025; U0003; U0005; 93005; 93010

== ENCOUNTER → 2021-12-12 | Day surgery (SDC) | payer MEDICARE ==
[2021-12-05 13:55] VITALS: BMI 30.6
[~2021-12-12] MED LIST changes: +Fentanyl 100 MCG/2 ML VIAL ONE; +Heparin 10,000 UNITS/ 10 ML VIAL ONE; +Iopamidol 370 76% 100 ML VIAL ONE; -Iopamidol-370 76% 500 ML 1 ML ONE; +Midazolam HCl 2 mg/2 ml Vial ONE
[2021-12-12 07:05] LABS: Cardiac Risk 3.7 (Less than 4.5)
== END ==
LOC: CCL 06:10
PROVIDERS: ATTEND Internal Medicine Cardiovascular Disease
PROC: 4A023N7 Measurement of Cardiac Sampling and Pressure, Left Heart, Percutaneous Approach (ICD-10-PCS; principal; 2021-12-12)
PROC: B2111ZZ Fluoroscopy of Multiple Coronary Arteries using Low Osmolar Contrast (ICD-10-PCS; 2021-12-12)
DX: R07.9 Chest pain, unspecified (principal); I25.10 Atherosclerotic heart disease of native coronary artery without angina pectoris; I10 Essential (primary) hypertension; E78.5 Hyperlipidemia, unspecified; E04.1 Nontoxic single thyroid nodule; M19.90 Unspecified osteoarthritis, unspecified site; K21.9 Gastro-esophageal reflux disease without esophagitis; Z87.891 Personal history of nicotine dependence; Z79.1 Long term (current) use of non-steroidal anti-inflammatories (NSAID); Z79.2 Long term (current) use of antibiotics; Z79.899 Other long term (current) drug therapy; Z88.1 Allergy status to other antibiotic agents; Z88.2 Allergy status to sulfonamides; Z88.5 Allergy status to narcotic agent; Z88.8 Allergy status to other drugs, medicaments and biological substances
CPT/HCPCS: 36415; 80061; 85347; 93458; 93571; 99152; 99153; C1769; J0153; J1644; J2250; J3010; Q9967

== ENCOUNTER 2022-02-28 11:48 | Outpatient (CLI) | payer MEDICARE | END 2022-02-28 11:49 | disposition home or self-care (01) | LOC: BICRAD 11:48 | PROVIDERS: ATTEND Internal Medicine | DX: R05.9 Cough, unspecified (principal) | CPT/HCPCS: 71046 ==

== ENCOUNTER 2022-03-11 07:25 | Day surgery (SDC) | payer MEDICARE ==
[2022-03-07 14:11] VITALS: BMI 29.7
[2022-03-11 08:57] VITALS: BP 141/74; TEMP 97.1
[2022-03-11] MEDS ORDERED: Iopamidol-M 200 41% 20 ML VIAL ONE (09:33)
== END 2022-03-11 10:10 | disposition home or self-care (01) ==
LOC: RAD 07:25
PROVIDERS: ATTEND Family Medicine
PROC: B01B1ZZ Fluoroscopy of Spinal Cord using Low Osmolar Contrast (ICD-10-PCS; principal; 2022-03-11)
DX: M96.1 Postlaminectomy syndrome, not elsewhere classified (principal); M47.26 Other spondylosis with radiculopathy, lumbar region; M43.16 Spondylolisthesis, lumbar region; M48.061 Spinal stenosis, lumbar region without neurogenic claudication; M25.78 Osteophyte, vertebrae; M48.07 Spinal stenosis, lumbosacral region; M41.86 Other forms of scoliosis, lumbar region; G89.4 Chronic pain syndrome; I10 Essential (primary) hypertension; K21.9 Gastro-esophageal reflux disease without esophagitis; J45.909 Unspecified asthma, uncomplicated; N28.1 Cyst of kidney, acquired; Z87.891 Personal history of nicotine dependence; Z79.2 Long term (current) use of antibiotics; Z79.899 Other long term (current) drug therapy; Z88.1 Allergy status to other antibiotic agents; Z88.2 Allergy status to sulfonamides; Z88.5 Allergy status to narcotic agent; Z88.6 Allergy status to analgesic agent; Z98.1 Arthrodesis status
CPT/HCPCS: 62304; 72132; Q9966

== ENCOUNTER 2022-04-02 13:31 | Outpatient (CLI) | payer MEDICARE | END 2022-04-02 13:32 | disposition home or self-care (01) | LOC: BICRAD 13:31 | PROVIDERS: ATTEND Family Medicine | DX: M54.6 Pain in thoracic spine (principal); M47.814 Spondylosis without myelopathy or radiculopathy, thoracic region | CPT/HCPCS: 72070 ==

== ENCOUNTER 2022-06-21 10:47 | Outpatient (CLI) | payer MEDICARE | END 2022-06-21 10:48 | disposition home or self-care (01) | LOC: BICMAMMO 10:47 | PROVIDERS: ATTEND Family Medicine | DX: Z12.31 Encounter for screening mammogram for malignant neoplasm of breast (principal); M81.0 Age-related osteoporosis without current pathological fracture | CPT/HCPCS: 77063; 77067; 77080 ==

== ENCOUNTER 2022-12-05 09:49 | Day surgery (SDC) | payer MEDICARE ==
[2022-12-04 14:01] VITALS: BMI 28.4
[2022-12-05] MEDS ORDERED: Famotidine/PF 20 mg/2ml Vial ONE (11:07)
[2022-12-05] MEDS ORDERED: fentaNYL PF 100 MCG/2 ML SYRINGE ONE (11:07)
[2022-12-05] MEDS ORDERED: Propofol 500 MG/50 ML VIAL ONE (11:07)
[2022-12-05] MEDS ORDERED: PROPOFOL 40 ML ONE (11:07)
[2022-12-05] MEDS ORDERED: Midazolam HCl 2 mg/2 ml Vial ONE (11:07)
[2022-12-05] MEDS ORDERED: Bupivacaine HCl 0.5%/Epinephrine 1:200,000/PF 30 ml Vial ONE ×2 (12:07→13:09)
[2022-12-05] MEDS ORDERED: CEFAZOLIN 1 GM VIAL ONE (12:15)
[2022-12-05] MEDS ORDERED: Sodium Chloride 0.9% 100 ML ONE (12:15)
[2022-12-05] MEDS ORDERED: Lidocaine 1% PF 5 ML VIAL ONE (12:39)
[2022-12-05] MEDS ORDERED: PROPOFOL 200 MG/20 ML VIAL ONE (12:39)
[2022-12-05] MEDS ORDERED: Ondansetron PF 4 MG/2 ML Vial ONE (12:39)
== END 2022-12-05 15:12 | disposition home or self-care (01) ==
LOC: SDC 09:49
PROVIDERS: ATTEND Specialist
PROC: 0JH70DZ Insertion of Multiple Array Stimulator Generator into Back Subcutaneous Tissue and Fascia, Open Approach (ICD-10-PCS; principal; 2022-12-05)
PROC: 00HU3MZ Insertion of Neurostimulator Lead into Spinal Canal, Percutaneous Approach (ICD-10-PCS; 2022-12-05)
DX: M96.1 Postlaminectomy syndrome, not elsewhere classified (principal); G89.4 Chronic pain syndrome; M54.16 Radiculopathy, lumbar region; Z79.899 Other long term (current) drug therapy; Z88.1 Allergy status to other antibiotic agents; Z88.2 Allergy status to sulfonamides; Z88.5 Allergy status to narcotic agent; Z88.6 Allergy status to analgesic agent; Z88.8 Allergy status to other drugs, medicaments and biological substances
CPT/HCPCS: 72070; C1713; C1778; C1787; C1820; J0690; J2250; J2405; J2704; J3490; L8689; S0028

== ENCOUNTER 2023-09-17 07:15 | Emergency (ER) | payer MEDICARE ==
[2023-09-17 08:03] LABS: #Eosinphils 0.1 thou/uL (0.0-0.7); #Monocytes 0.8 thou/uL (0.11-0.59); #Neutrophils 1.9 thou/uL (1.40-6.50); %Basophils 0.8 % (0.0-1.0); %Eosinophils 1.5 % (0.0-10.0); %Lymphocytes 41.4 % (21.0-51.0); %Monocytes 16.8 % (0.0-10.0); %Neutrophils 39.5 % (42.0-75.0); Hematocrit 40.7 % (36.0-47.0); Hemoglobin 13.9 g/dL (12.0-16.0); Mean Corpuscular HGB CONC 34.2 g/dL (32.0-36.0); Mean Corpuscular Hemoglobin 32.2 pg (27.0-31.0); Mean Corpuscular Volume 94.2 fl (78.0-98.0); Mean Platelet Volume 8.9 fL (7.4-10.4); Platelet Count 278 10x3/uL (130-400); RBC Distribution Width 13.3 % (11.5-14.5); Red Blood Cell (RBC) Count 4.32 mill/uL (4.20-5.40); White Blood Cell (WBC) Count 4.8 10x3/uL (4.8-10.8)
[2023-09-17 08:29] LABS: ALT (SGPT) 17 U/L (8-55); AST (SGOT) 14 U/L (5-34); Albumin 4.4 g/dL (3.4-4.8); Alkaline Phosphatase 39 U/L (40-110); Anion Gap 14 mmol/L (10-20); BUN (Urea Nitrogen) 15 mg/dL (9.8-20.1); Bilirubin, Total 0.9 mg/dL (0.2-1.2); Calc. Creatinine Clearance 0 mL/min (70-130); Calcium 9.3 mg/dL (7.8-10.44); Carbon Dioxide 27 mmol/L (23-31); Chloride 102 mmol/L (98-107); Estimated GFR 81; Globulin 2.5 g/dL (2.4-3.5); Glucose 104 mg/dL (83-110); Lipase 27 U/L (8-78); Potassium 4.4 mmol/L (3.5-5.1); Protein, Total 6.9 g/dL (5.8-8.1); Sodium 139 mmol/L (136-145)
[2023-09-17 08:31] LABS: Troponin I Less than 0.010 ng/mL (< 0.028)
[2023-09-17] MEDS ORDERED: Acetaminophen 325 MG TAB ONE (10:28)
[2023-09-17 11:09] LABS: Troponin I Less than 0.010 ng/mL (< 0.028)
== END 2023-09-17 12:51 | disposition home or self-care (01) ==
LOC: ERS 07:15
DX: R07.9 Chest pain, unspecified (principal); I10 Essential (primary) hypertension; E78.5 Hyperlipidemia, unspecified; K21.9 Gastro-esophageal reflux disease without esophagitis; Z79.899 Other long term (current) drug therapy
CPT/HCPCS: 36415; 71045; 80053; 83690; 84484; 85025; 93005

== ENCOUNTER 2023-09-25 12:34 | Outpatient (CLI) | payer MEDICARE | END 2023-09-25 12:35 | disposition home or self-care (01) | LOC: MRI 12:34 | PROVIDERS: ATTEND Family Medicine | DX: G43.009 Migraine without aura, not intractable, without status migrainosus (principal); I67.89 Other cerebrovascular disease | CPT/HCPCS: 70553 ==

== ENCOUNTER 2023-11-28 08:43 | Outpatient (CLI) | payer MEDICARE | END 2023-11-28 08:44 | disposition home or self-care (01) | LOC: BICMAMMO 08:43 | PROVIDERS: ATTEND Family Medicine | DX: Z12.31 Encounter for screening mammogram for malignant neoplasm of breast (principal); M81.0 Age-related osteoporosis without current pathological fracture; M85.851 Other specified disorders of bone density and structure, right thigh; M85.852 Other specified disorders of bone density and structure, left thigh; Z79.899 Other long term (current) drug therapy | CPT/HCPCS: 77063; 77067; 77080 ==

== ENCOUNTER 2023-12-30 09:58 | Outpatient (CLI) | payer MEDICARE, OTHER | END 2023-12-30 09:59 | disposition home or self-care (01) | LOC: MRI 09:58 | PROVIDERS: ATTEND Orthopaedic Surgery | DX: M75.122 Complete rotator cuff tear or rupture of left shoulder, not specified as traumatic (principal); M19.012 Primary osteoarthritis, left shoulder ==

== ENCOUNTER 2024-03-09 17:15 | Emergency (ER) | payer MEDICARE, OTHER ==
[2024-03-09] MEDS ORDERED: diphenhydrAMINE 25 MG CAP ONE (17:50)
[2024-03-09] MEDS ORDERED: Lidocaine/Transparent Dressing 1 EACH KIT ONE (17:52)
== END 2024-03-09 18:01 | disposition home or self-care (01) ==
LOC: ERS 17:15
DX: T63.2X1A Toxic effect of venom of scorpion, accidental (unintentional), initial encounter (principal); I10 Essential (primary) hypertension
CPT/HCPCS: 99282

== ENCOUNTER 2024-05-02 23:12 | Observation (INO) | payer MEDICARE, OTHER ==
[2024-05-02 23:56] LABS: #Basophils Less than 0.03 10x3/uL (0.0-0.2); #Eosinphils Less than 0.03 10x3/uL (0.0-0.7); %Basophils 0.3 % (0.0-1.0); %Eosinophils 0.3 % (0.0-10.0); %Lymphocytes 15.8 % (21.0-51.0); %Monocytes 10.4 % (0.0-10.0); %Neutrophils 72.9 % (42.0-75.0); Hematocrit 39.6 % (36.0-47.0); Hemoglobin 13.9 g/dL (12.0-16.0); Mean Corpuscular HGB CONC 35.1 g/dL (32.0-36.0); Mean Corpuscular Hemoglobin 32.1 pg (27.0-31.0); Mean Corpuscular Volume 91.5 fL (78.0-98.0); Mean Platelet Volume 8.6 fL (7.4-10.4); Platelet Count 220 10x3/uL (130-400); RBC Distribution Width 14.1 % (11.5-14.5); Red Blood Cell (RBC) Count 4.33 mill/uL (4.20-5.40)
[2024-05-03 00:11] LABS: ALT (SGPT) 60 U/L (8-55); AST (SGOT) 95 U/L (5-34); Albumin 3.6 g/dL (3.4-4.8); Alkaline Phosphatase 82 U/L (40-110); Anion Gap 14 mmol/L (10-20); BUN (Urea Nitrogen) 10 mg/dL (9.8-20.1); Bilirubin, Total 1.2 mg/dL (0.2-1.2); Calc. Creatinine Clearance 0 mL/min (70-130); Calcium 9.2 mg/dL (7.8-10.44); Carbon Dioxide 23 mmol/L (23-31); Chloride 101 mmol/L (98-107); Estimated GFR 92; Globulin 3.3 g/dL (2.4-3.5); Glucose 137 mg/dL (83-110); Magnesium 1.9 mg/dL (1.6-2.6); Potassium 3.2 mmol/L (3.5-5.1); Protein, Total 6.9 g/dL (5.8-8.1); Sodium 135 mmol/L (136-145)
[2024-05-03] MEDS ORDERED: Aspirin Chewable 81 MG TAB ONE (00:14)
[2024-05-03] MEDS ORDERED: Nitroglycerin 2% Ointment 1 INCH/1 GM Packet ONE (00:14)
[2024-05-03 00:15] LABS: Troponin I Less than 0.010 ng/mL (< 0.028)
[2024-05-03] MEDS ORDERED: Albuterol 200 PUFF (6.7GM INHALER) INH PRN (01:12)
[2024-05-03] MEDS ORDERED: Nitroglycerin 0.4 MG TAB (25 Tab Bottle) SL PRN (01:12)
[2024-05-03 01:37] LABS: Lipase 12 U/L (8-78)
[2024-05-03] MEDS ORDERED: Ondansetron PF 4 MG/2 ML Vial IVP PRN (02:00)
[2024-05-03] MEDS ORDERED: Acetaminophen 325 MG TAB PO PRN (02:01)
[2024-05-03] MEDS ORDERED: Ondansetron PF 4 MG/2 ML Vial ONE ×2 (02:45→03:56)
[2024-05-03] MEDS ORDERED: Potassium Chloride 20 MEQ (100 mL) BAG ONE (04:01)
[2024-05-03 04:02] LABS: #Basophils Less than 0.03 10x3/uL (0.0-0.2); #Eosinphils Less than 0.03 10x3/uL (0.0-0.7); %Basophils 0.2 % (0.0-1.0); %Lymphocytes 13.8 % (21.0-51.0); %Neutrophils 74.7 % (42.0-75.0); Hematocrit 39.2 % (36.0-47.0); Hemoglobin 13.1 g/dL (12.0-16.0); Mean Corpuscular HGB CONC 33.4 g/dL (32.0-36.0); Mean Corpuscular Hemoglobin 31.5 pg (27.0-31.0); Mean Corpuscular Volume 94.2 fL (78.0-98.0); Platelet Count 222 10x3/uL (130-400); RBC Distribution Width 14.4 % (11.5-14.5); Red Blood Cell (RBC) Count 4.16 mill/uL (4.20-5.40)
[2024-05-03 04:05] LABS: Bacteria/HPF None Seen HPF (None Seen); Bilirubin Negative (Negative); Blood, Urine Negative (Negative); CAUTI Indications for Culture Dysuria,urgency,freq; Clarity Clear (Clear); Glucose, Urine (Dipstick) Normal (Negative); Ketone, Urine 80 mg/dL (Negative); Leukocyte Negative Leu/uL (Negative); Nitrite Negative (Negative); Protein, Urine (Dipstick) 20 mg/dL (Neg-Trace); Specific Gravity, Urine 1.023 (1.002-1.036); Squamous Epithelial 0-3 HPF (0-3); Urobilinogen Normal mg/dL (Less than 2); pH, Urine 5.5 (5.0-9.0)
[2024-05-03 04:07] LABS: Urine Culture Reflex No No
[2024-05-03] MEDS: Lactated Ringer's 1,000 ML IV SCH (04:08)
[2024-05-03] MEDS: Potassium Chloride 20 MEQ in Premix 1 BAG IVPB SCH (04:10)
[2024-05-03] MEDS ORDERED: Pantoprazole 40 MG VIAL ONE (04:25)
[2024-05-03] MEDS ORDERED: Enoxaparin 40 MG (0.4 mL) SYRINGE ONE (04:25)
[2024-05-03] MEDS: Pantoprazole 40 MG VIAL IVP SCH ×2 (04:31→21:15)
[2024-05-03] MEDS: Enoxaparin 40 MG (0.4 mL) SYRINGE SC SCH ×2 (04:34→21:13)
[2024-05-03] MEDS ORDERED: Potassium Chloride 20 MEQ TAB ONE (04:49)
[2024-05-03 04:52] LABS: Troponin I Less than 0.010 ng/mL (< 0.028)
[2024-05-03 04:54] LABS: ALT (SGPT) 173 U/L (8-55); AST (SGOT) 258 U/L (5-34); Albumin 3.4 g/dL (3.4-4.8); Alkaline Phosphatase 109 U/L (40-110); Anion Gap 16 mmol/L (10-20); BUN (Urea Nitrogen) 11 mg/dL (9.8-20.1); Bilirubin, Total 1.1 mg/dL (0.2-1.2); Calc. Creatinine Clearance 104 mL/min (70-130); Calcium 8.9 mg/dL (7.8-10.44); Carbon Dioxide 18 mmol/L (23-31); Chloride 101 mmol/L (98-107); Estimated GFR 94; Globulin 3.2 g/dL (2.4-3.5); Glucose 140 mg/dL (83-110); Potassium 3.4 mmol/L (3.5-5.1); Protein, Total 6.6 g/dL (5.8-8.1); Sodium 132 mmol/L (136-145)
[2024-05-03] MEDS: Potassium Chloride 20 MEQ TAB PO SCH (05:05)
[2024-05-03] MEDS ORDERED: Pantoprazole 40 MG VIAL IVP SCH (09:00)
[2024-05-03] MEDS: Gabapentin 100 MG CAP PO SCH (09:33)
[2024-05-03] MEDS: Losartan 25 MG TAB PO SCH (09:34)
[2024-05-03] MEDS: Ipratropium Bromide 0.06% Nasal Inhaler 15ml EA NARE SCH (09:34)
[2024-05-03] MEDS: Aspirin Chewable 81 MG TAB PO SCH (09:34)
[2024-05-03 09:40] VITALS: BMI 28.8
[2024-05-03 11:13] LABS: Troponin I Less than 0.010 ng/mL (< 0.028)
[2024-05-03] MEDS: Atorvastatin Calcium 40 MG TAB PO SCH (21:12)
[2024-05-03] MEDS: Montelukast Sodium 10 mg Tablet PO SCH (21:14)
[2024-05-03] MEDS: Oxybutynin ER 5 MG TAB PO SCH (21:14)
[2024-05-04 05:16] VITALS: BP 152/80
[2024-05-04 05:38] LABS: #Basophils 0.03 10x3/uL (0.0-0.2); %Basophils 0.6 % (0.0-1.0); %Eosinophils 1.6 % (0.0-10.0); %Lymphocytes 45.7 % (21.0-51.0); %Monocytes 17.2 % (0.0-10.0); %Neutrophils 34.7 % (42.0-75.0); Hematocrit 39.8 % (36.0-47.0); Hemoglobin 13.3 g/dL (12.0-16.0); Mean Corpuscular HGB CONC 33.4 g/dL (32.0-36.0); Mean Corpuscular Hemoglobin 32.1 pg (27.0-31.0); Mean Corpuscular Volume 96.1 fL (78.0-98.0); Platelet Count 248 10x3/uL (130-400); RBC Distribution Width 14.5 % (11.5-14.5); Red Blood Cell (RBC) Count 4.14 mill/uL (4.20-5.40)
[2024-05-04 05:55] LABS: ALT (SGPT) 99 U/L (8-55); AST (SGOT) 53 U/L (5-34); Albumin 3.3 g/dL (3.4-4.8); Alkaline Phosphatase 92 U/L (40-110); Anion Gap 14 mmol/L (10-20); BUN (Urea Nitrogen) 9 mg/dL (9.8-20.1); Bilirubin, Total 0.5 mg/dL (0.2-1.2); Calc. Creatinine Clearance 91 mL/min (70-130); Calcium 8.8 mg/dL (7.8-10.44); Carbon Dioxide 24 mmol/L (23-31); Chloride 103 mmol/L (98-107); Estimated GFR 91; Globulin 3.1 g/dL (2.4-3.5); Glucose 118 mg/dL (83-110); Potassium 3.5 mmol/L (3.5-5.1); Protein, Total 6.4 g/dL (5.8-8.1); Sodium 137 mmol/L (136-145)
[2024-05-04 10:27] VITALS: TEMP 98.4
[2024-05-04] MEDS ORDERED: Magnevist 469MG/ML 20 ML VIAL ONE (12:00)
== END 2024-05-04 12:38 | disposition home or self-care (01) ==
LOC: ERS 23:12 → ERHOLD 05-03 01:18 → 2SW 05-03 08:28 → T4-A 05-03 15:44
PROVIDERS: ADMIT Student in an Organized Health Care Education/Training Program; ATTEND Hospitalist
DX: R10.13 Epigastric pain (principal); K21.9 Gastro-esophageal reflux disease without esophagitis; I25.10 Atherosclerotic heart disease of native coronary artery without angina pectoris; I10 Essential (primary) hypertension; E78.5 Hyperlipidemia, unspecified; R94.5 Abnormal results of liver function studies; E87.6 Hypokalemia; Z90.89 Acquired absence of other organs; Z90.710 Acquired absence of both cervix and uterus; Z90.49 Acquired absence of other specified parts of digestive tract; Z88.5 Allergy status to narcotic agent; Z88.2 Allergy status to sulfonamides; Z88.1 Allergy status to other antibiotic agents; Z88.8 Allergy status to other drugs, medicaments and biological substances; Z79.899 Other long term (current) drug therapy
CPT/HCPCS: 70553; 71045; 74181; 76700; 80053 ×3; 81001; 83690; 83735 ×2; 84484 ×3; 85025 ×3; 93005; 94760; 95816; 96372 ×2; 96374; 96375; 96376 ×2; 99285; C9113 ×2; G0378 ×3; J1650; J2405; J3480; J7120; 36415; A9579

== ENCOUNTER 2024-05-04 12:58 | Outpatient (CLI) | payer MEDICARE, OTHER | END 2024-05-04 12:59 | disposition home or self-care (01) | LOC: MRI 12:58 | PROVIDERS: ATTEND Psychiatry & Neurology Neurology | DX: R41.3 Other amnesia (principal) | CPT/HCPCS: 95816 ==

== ENCOUNTER 2024-05-10 13:41 | Outpatient (CLI) | payer MEDICARE | END 2024-05-10 13:42 | disposition home or self-care (01) | LOC: SCSRAD 13:41 | PROVIDERS: ATTEND Nurse Practitioner Family | DX: R05.1 Acute cough (principal) | CPT/HCPCS: 71046 ==

== ENCOUNTER 2024-10-20 08:24 | Outpatient (CLI) | payer MEDICARE | END 2024-10-20 08:25 | disposition home or self-care (01) | LOC: RAD 08:24 | PROVIDERS: ATTEND Internal Medicine Critical Care Medicine | DX: R06.00 Dyspnea, unspecified (principal) | CPT/HCPCS: 71046 ==

== ENCOUNTER 2024-11-17 20:14 | Emergency (ER) | payer MEDICARE, OTHER ==
[2024-11-17 21:57] LABS: #Basophils 0.05 10x3/uL (0.0-0.2); %Basophils 0.6 % (0.0-1.0); %Eosinophils 0.9 % (0.0-10.0); %Monocytes 11.8 % (0.0-10.0); %Neutrophils 58.4 % (42.0-75.0); Hematocrit 38.7 % (36.0-47.0); Hemoglobin 12.9 g/dL (12.0-16.0); Mean Corpuscular HGB CONC 33.3 g/dL (32.0-36.0); Mean Corpuscular Hemoglobin 31.5 pg (27.0-31.0); Mean Corpuscular Volume 94.6 fL (78.0-98.0); Mean Platelet Volume 8.3 fL (7.4-10.4); Platelet Count 288 10x3/uL (130-400); RBC Distribution Width 14.2 % (11.5-14.5); Red Blood Cell (RBC) Count 4.09 mill/uL (4.20-5.40)
[2024-11-17 22:17] LABS: Calc. Creatinine Clearance 0 mL/min (70-130); Estimated GFR 91
[2024-11-17 22:19] LABS: ALT (SGPT) 17 U/L (8-55); AST (SGOT) 15 U/L (5-34); Albumin 3.8 g/dL (3.4-4.8); Alkaline Phosphatase 55 U/L (40-110); Anion Gap 11 mmol/L (10-20); BUN (Urea Nitrogen) 15 mg/dL (9.8-20.1); Bilirubin, Total 0.3 mg/dL (0.2-1.2); Calcium 9.6 mg/dL (7.8-10.44); Carbon Dioxide 27 mmol/L (23-31); Chloride 102 mmol/L (98-107); Globulin 2.9 g/dL (2.4-3.5); Glucose 115 mg/dL (83-110); Lipase 28 U/L (8-78); Potassium 3.9 mmol/L (3.5-5.1); Protein, Total 6.7 g/dL (5.8-8.1); Sodium 136 mmol/L (136-145)
[2024-11-17 22:24] LABS: Troponin I Less than 0.010 ng/mL (< 0.028)
[2024-11-17 23:01] LABS: Bacteria/HPF None Seen HPF (None Seen); Bilirubin Negative (Negative); Blood, Urine Negative (Negative); CAUTI Indications for Culture Alt mental st,lethar; Clarity Clear (Clear); Glucose, Urine (Dipstick) Normal (Negative); Ketone, Urine Negative (Negative); Leukocyte Negative Leu/uL (Negative); Nitrite Negative (Negative); Protein, Urine (Dipstick) Negative (Neg-Trace); RBC/HPF 0-3 HPF (0-3); Specific Gravity, Urine 1.014 (1.002-1.036); Squamous Epithelial None Seen HPF (0-3); Urobilinogen Normal mg/dL (Less than 2); WBC/HPF 0-3 HPF (0-3)
[2024-11-17 23:09] LABS: Urine Culture Reflex No No
== END 2024-11-17 23:20 | disposition home or self-care (01) ==
LOC: ERS 20:14
DX: S20.211A Contusion of right front wall of thorax, initial encounter (principal); I10 Essential (primary) hypertension; W01.0XXA Fall on same level from slipping, tripping and stumbling without subsequent striking against object, initial encounter
CPT/HCPCS: 36415; 80053; 81001; 83690; 83735; 83880; 84484; 85025; 93005; 99284

== ENCOUNTER 2025-10-04 10:16 | Outpatient (CLI) | payer MEDICARE, OTHER | END 2025-10-04 10:17 | disposition home or self-care (01) | LOC: BICRAD 10:16 | PROVIDERS: ATTEND Physician Assistant Medical | DX: K59.00 Constipation, unspecified (principal); R10.9 Unspecified abdominal pain | CPT/HCPCS: 74018 ==

== ENCOUNTER 2025-10-20 08:57 | Outpatient (CLI) | payer MEDICARE, OTHER | END 2025-10-20 08:58 | disposition home or self-care (01) | LOC: RAD 08:57 | PROVIDERS: ATTEND Internal Medicine Critical Care Medicine | DX: R06.00 Dyspnea, unspecified (principal) | CPT/HCPCS: 71046 ==